=== PATIENT | female | born 1965 ===

== ENCOUNTER 2021-02-03 12:58 | Outpatient (REF) | payer OTHER, SELFPAY | END 2021-02-03 12:59 | disposition home or self-care (01) | LOC: HO.LAB 12:58 | PROVIDERS: Visit Provider Internal Medicine | DX: Z20.822 Contact with and (suspected) exposure to COVID-19 (principal) | CPT/HCPCS: C9803; U0003; U0005 ==

== ENCOUNTER 2021-08-11 14:01 | Outpatient (REF) | payer OTHER, SELFPAY ==
--- NOTE | ~2021-08-11 | MM_ITS ---
EXAMINATION: MM SCREENING DIGITAL BREAST TOMOSYNTHESIS, BILATERAL CLINICAL INFORMATION: Screening. Asymptomatic. The lifetime risk of breast cancer based on the Tyrer-Cuzick Model is 11.8%. COMPARISON: Mammography: September 04, 2018 and studies dating back to September 29, 2013 TECHNIQUE: Digital breast tomosynthesis is performed in both the craniocaudal and mediolateral oblique views along with computer-aided detection (CAD). Synthesized 2D images are generated from the tomosynthesis. FINDINGS: The breasts are heterogeneously dense, which may obscure small masses (ACR BI-RADS breast composition Category c). There are no significant masses, abnormal calcifications, or other abnormalities. There are stable circumscribed densities seen bilaterally. MM/MM tomosynthesis screening BI IMPRESSION: There are no significant changes from prior study. ASSESSMENT: BI-RADS 1: Negative RECOMMENDATION: Routine annual mammography screening. This patient's information was entered into a reminder system with a target due date for their next mammogram.
== END 2021-08-11 14:02 | disposition home or self-care (01) ==
LOC: HO.MAMMO 14:01
PROVIDERS: Visit Provider Internal Medicine
DX: Z12.31 Encounter for screening mammogram for malignant neoplasm of breast (principal)
CPT/HCPCS: 77063; 77067

== ENCOUNTER 2021-11-06 12:29 | Emergency (ER) | payer OTHER, SELFPAY ==
--- NOTE | ~2021-11-06 | XR_ITS ---
EXAMINATION: XR CHEST CLINICAL INFORMATION: Shortness of breath and cough COMPARISON: 04/10/2012 TECHNIQUE: 2 views of the chest were obtained. FINDINGS: No significant abnormality is noted involving the heart, lungs, mediastinum, bony thorax or soft tissues. Mild degenerative changes are present in the spine with surgical clips in the gallbladder fossa. XR/XR chest 2V IMPRESSION: No acute intrathoracic disease.
[2021-11-06 13:22] VITALS: BP 121/82; PULSE 97; RESP 20; TEMP 36.8; O2SAT 100; BMI 29.2
--- NOTE | 2021-11-06 17:14 | ED.SOB ---
HPI - SOB/Dyspnea General Chief Complaint: Upper Respiratory Symptoms Stated Complaint: coughing/SOB Time Seen by Provider: 11/06/21 17:13 Source: patient Mode of arrival: ambulatory Limitations: no limitations History of Present Illness HPI Narrative: Patient is a 55-year-old female with a past medical history of asthma, hypertension, diabetes, hyperlipidemia, depression, schizophrenia. She is presenting to the emergency department for evaluation of breath and cough. She states that she is having shortness of breath and coughing for 2 weeks. She was evaluated 5 days ago at [facility] and was prescribed Tessalon which she reports has made no improvement in her symptoms. She has been using her albuterol inhaler without significant improvement, does not have any nebulizer treatment/ machine at home. Productive cough with green phlegm. In addition, she is experiencing nasal congestion. She denies fevers, chills, sore throat, chest pain, palpitations, nausea, vomiting, diarrhea, abdominal pain, weakness. Reports she has not recently been on any prednisone. She has been vaccinated for COVID-19 has received 2 doses of CELLFOR last dose July 2021. She denies any sick contacts or possible exposure to COVID-19. Related Data Previous Rx's Medication Instructions Recorded oxybutynin chloride 10 mg 10 mg PO DAILY 90 Days #90 tab 07/01/20 tablet,extended release 24 hr dextromethorphan-guaifenesin 10 10 ml PO Q4-6H PRN #500 ml 11/06/21 mg-100 mg/5 mL oral liquid prednisone 20 mg tablet 40 mg PO DAILY 5 Days #10 tab 11/06/21 Allergies Allergy/AdvReac Type Severity Reaction Status Date / Time latex [LATEX] Allergy Intermediate ITCHING, Unverified 05/20/20 18:21 REDNESS perfume [PERFUME] Allergy Unknown TONGUE Unverified 05/20/20 18:21 OROZCO DETERGENT Allergy Unknown RASH Uncoded 05/20/20 18:21 Review of Systems Review of Systems: Constitutional : No Fever, No Chills ENT/Mouth : No Hoarseness, No sore throat, No Rhinorrhea Eyes: No Redness, No Discharge, No Vision Changes Cardiovascular : No Chest Pain, positive SOB, positive Dyspnea on Exertion, No Edema Respiratory : positive Cough, No Sputum, positive Wheezing, Gastrointestinal : No Nausea, No Vomiting, No Diarrhea, No abdominal Pain Genitourinary : No Dysuria, No Hematuria Musculoskeletal : No joint pain, No Myalgias Skin : No rash Neuro : No Weakness, No Numbness, No Headache Psych : No anxiety, depression Heme/Lymph: No Bruising, No Bleeding Endocrine : No Polyuria, No Polydipsia All other systems reviewed and are negative [facility] Social History Social History Advance Directives: No Advance Directives Information Provided: No Patient : No Physical Exam Vital Signs: Vital Signs: Last Vital Signs Temp 98.2 F 11/06/21 13:22 Pulse 119 H 11/06/21 18:59 Resp 18 11/06/21 18:59 BP 114/71 11/06/21 18:59 Pulse Ox 98 11/06/21 18:59 BMI result Body Mass Index 29.2 Vital signs have been reviewed as normal and appeared to be correct. Blood pressure normal.? Heart rate normal.? Respiration rate normal. Temperature normal.? Oxygen saturation normal. Appearance: Alert.?Oriented to person, place and time. No acute distress.?Normal affect. Eyes: Pupils equal, round and reactive to light.? ENT: Pharynx normal.?? Neck: Normal inspection.? Neck supple.?? CVS: Heart sounds normal. Normal heart rate and rhythm.? Pulses normal.?? Respiratory: No respiratory distress.? Lung sounds with inspiratory and expiratory wheezing and rhonchi bilaterally Abdomen: Soft and non-tender. Normoactive bowel sounds. No pulsatile mass.?? Skin: Skin warm and dry.? Normal skin color.? Normal skin turgor.?? Extremities: No lower extremity edema.? No calf ttp? Neuro: Moves all extremities spontaneously. Sensation intact bilaterally. CN II-XII intact. No focal neuro deficits. Ambulates with normal steady gait. Course Course Course Narrative: Will obtain CBC to evaluate for leukocytosis/ anemia, BMP evaluate for abnormal electrolytes /abnormal renal function. Chest x-ray to evaluate for consolidation/ infiltrate/ mass/ pulmonary congestion. COVID-19, RSV, influenza testing to be obtained. EKG and troponin to evaluate for ischemia/ACS. Will order prednisone 60 mg by mouth, and albuterol 10 mg. Disposition pending results. Reevaluation(s) Reevaluation #1: CBC reveals a mild leukocytosis of 12.9, with elevated lymphocyte count low neutrophils, likely to be a viral upper respiratory infection. EKG reveals normal sinus rhythm, troponin <3.5, unlikely to be ACS. COVID-19, RSV, influenza testing negative. Chest X-ray is normal. Lung sounds remain with mild rhonchi bilaterally, faint expiratory wheezing in the lower lobes but significantly improved after prednisone and nebulizer inhaler. Tachycardia after treatment with heart rate 119 likely secondary to albuterol, and corticosteroids. Symptoms are consistent with a viral bronchitis, asthma exacerbation. I discussed findings with patient. Patient to be discharged home with prescription for short course of prednisone and guaifenesin, discussed reasons to return to the emergency department. Advised to contact her primary care provider to schedule follow-up appointment in 1-2 days. Patient is agreeable with plan of care. Time: 18:43 MDM - SOB/Dyspnea Medical Records Attestation: I reviewed the patient's medical records. Lab Data Attestation: I reviewed the patient's lab results. Result diagrams: 11/06/21 15:12 11/06/21 15:12 Labs: Lab Results 11/06/21 11/06/21 11/06/21 Range/Units 15:12 15:12 15:12 WBC 12.9 H (4.8-10.8) X10*3/uL RBC 5.00 (4.20-5.50) X10*6/uL Hgb 13.5 (12.0-16.0) g/dl Hct 43.0 (37.0-47.0) % MCV 86.0 (80.0-98.0) fL MCH 27.0 (27.0-33.0) pg MCHC 31.4 (31.0-35.0) g/dl RDW 13.9 (11.0-16.0) % Plt Count 217 (160-400) X10*3/uL MPV 11.4 (9.4-12.3) fL Immature Gran % (Auto) 0.2 (0.0-0.4) % Neut % (Auto) 35.2 L (45-73) % Lymph % (Auto) 58.5 H (20-40) % [place] % (Auto) 4.5 (2-11) % Eos % (Auto) 0.9 (0-4) % Baso % (Auto) 0.7 (0-2) % Lymph # (Auto) 7.5 H (1.2-4.9) X10*3/uL [place] # (Auto) 0.6 (0.1-1.2) X10*3/uL Eos # (Auto) 0.1 (0.0-0.4) X10*3/uL Baso # (Auto) 0.1 (0.0-0.2) X10*3/uL Abs Immat Gran (auto) 0.03 (0.00-0.03) X10*3/uL Absolute Neuts (auto) 4.5 (2.0-8.3) x10*3/uL Absolute Nucleated RBC 0.000 (0.0-0.012) X10*3/uL Nucleated RBC % (auto) 0.0 (0.0-0.2) /100WBC Sodium 140 (135-145) mmol/L Potassium 4.2 (3.3-5.1) mmol/L Chloride 106 (96-108) mmol/L Carbon Dioxide 27 (22-29) mmol/L Anion Gap 11 L (12-20) BUN 5 L (9-16) mg/dL Creatinine 0.79 (0.5-1.4) mg/dL Estim Creat Clear Calc 69.2 Estimated GFR > 60 Random Glucose 94 (60-115) mg/dL Calcium 10.1 (8.4-10.2) mg/dL Troponin I High Sens (<3.5-17.0) ng/L Influenza Type A (PCR) NEGATIVE (Negative) Influenza Type B (PCR) NEGATIVE (Negative) RSV RNA Qual (PCR) NEGATIVE (Negative) SARS-CoV-2 RNA (RT-PCR) NEGATIVE (Negative) 11/06/21 Range/Units 15:12 WBC (4.8-10.8) X10*3/uL RBC (4.20-5.50) X10*6/uL Hgb (12.0-16.0) g/dl Hct (37.0-47.0) % MCV (80.0-98.0) fL MCH (27.0-33.0) pg MCHC (31.0-35.0) g/dl RDW (11.0-16.0) % Plt Count (160-400) X10*3/uL MPV (9.4-12.3) fL Immature Gran % (Auto) (0.0-0.4) % Neut % (Auto) (45-73) % Lymph % (Auto) (20-40) % [place] % (Auto) (2-11) % Eos % (Auto) (0-4) % Baso % (Auto) (0-2) % Lymph # (Auto) (1.2-4.9) X10*3/uL [place] # (Auto) (0.1-1.2) X10*3/uL Eos # (Auto) (0.0-0.4) X10*3/uL Baso # (Auto) (0.0-0.2) X10*3/uL Abs Immat Gran (auto) (0.00-0.03) X10*3/uL Absolute Neuts (auto) (2.0-8.3) x10*3/uL Absolute Nucleated RBC (0.0-0.012) X10*3/uL Nucleated RBC % (auto) (0.0-0.2) /100WBC Sodium (135-145) mmol/L Potassium (3.3-5.1) mmol/L Chloride (96-108) mmol/L Carbon Dioxide (22-29) mmol/L Anion Gap (12-20) BUN (9-16) mg/dL Creatinine (0.5-1.4) mg/dL Estim Creat Clear Calc Estimated GFR Random Glucose (60-115) mg/dL Calcium (8.4-10.2) mg/dL Troponin I High Sens < 3.5 (<3.5-17.0) ng/L Influenza Type A (PCR) (Negative) Influenza Type B (PCR) (Negative) RSV RNA Qual (PCR) (Negative) SARS-CoV-2 RNA (RT-PCR) (Negative) Imaging Data Chest x-ray: Radiologist's impression: FINDINGS: No significant abnormality is noted involving the heart, lungs, mediastinum, bony thorax or soft tissues. Mild degenerative changes are present in the spine with surgical clips in the gallbladder fossa. XR/XR chest 2V IMPRESSION: No acute intrathoracic disease. ECG Data Attestation: I personally reviewed and interpreted this ECG as follows: ECG interpretation date: 11/06/21 ECG interpretation time: 18:05 Prior ECG tracings: available for review Interpretation: Rate: 86 Rhythm:? Normal sinus rhythm [place]:? Normal Normal P waves.? Normal ALEXEI.?? Normal QRS complex.?? ST T wave :??No ST elevation, no ST depression, no T-wave inversion qTC: 447 prior studies:? December 2018 The study has been interpreted contemporaneously by me. Discharge Plan Discharge Clinical Impression: Upper respiratory infection Patient Disposition: Home, Self-Care Instructions: Upper Respiratory Infection (ED) Additional Instructions: Your symptoms are consistent with an upper respiratory infection and likely asthma exacerbation. Please take cough syrup as prescribed, and prednisone daily for 5 days. Please take the prednisone food as it may cause upset stomach. And a thumb a result an increase in your blood sugar levels, we should monitor this closely. Please contact your primary care provider and schedule follow-up appointment in 1-2 days. Return to the emergency department with any new or worsening symptoms or concerns Prescriptions: New prednisone 20 mg tablet 40 mg PO DAILY 5 Days Qty: 10 0RF dextromethorphan-guaifenesin 10-100 mg/5 mL liquid 10 ml PO Q4-6H PRN (Reason: cough) Qty: 500 0RF No Action oxybutynin chloride 10 mg tablet extended release 24hr 10 mg PO DAILY 90 Days Qty: 90 2RF Interventions: ED Discharge Assessment Last Done: 11/06/21 19:39 Discharge Date/Time: 11/06/21 19:44
[2021-11-06 17:18] LABS: MANUAL DIFF FLAG NO
[2021-11-06 17:19] LABS: Basophils Absolute Auto 0.1 X10*3/uL (0.0-0.2); Basophils Percent Auto 0.7 % (0-2); Eosinophils Absolute Auto 0.1 X10*3/uL (0.0-0.4); Eosinophils Percent Auto 0.9 % (0-4); Hemoglobin 13.5 g/dl (12.0-16.0); Imm Gran Abs Auto 0.03 X10*3/uL (0.00-0.03); Imm Gran Pct Auto 0.2 % (0.0-0.4); Mean Corpuscular HGB Conc 31.4 g/dl (31.0-35.0); Mean Platelet Volume 11.4 fL (9.4-12.3); Monocytes Absolute Auto 0.6 X10*3/uL (0.1-1.2); Monocytes Percent Auto 4.5 % (2-11); Neutrophils Absolute Auto 4.5 x10*3/uL (2.0-8.3); Neutrophils Percent Auto 35.2 % (45-73); Platelet Count 217 X10*3/uL (160-400); Red Cell Distribution Width 13.9 % (11.0-16.0); SCAN SMEAR FLAG 1; White Blood Count 12.9 X10*3/uL (4.8-10.8)
[2021-11-06 17:23] LABS: Lymphocytes Absolute Auto 7.5 X10*3/uL (1.2-4.9)
[2021-11-06 17:37] LABS: Anion Gap 11 (12-20); Blood Urea Nitrogen 5 mg/dL (9-16); Calcium 10.1 mg/dL (8.4-10.2); Carbon Dioxide 27 mmol/L (22-29); Chloride 106 mmol/L (96-108); Creatinine Clr Calc Pharmacy 69.2; Estimated Glomerular Filt Rate > 60; Glucose Random 94 mg/dL (60-115); Potassium 4.2 mmol/L (3.3-5.1); Sodium 140 mmol/L (135-145)
[2021-11-06 17:38] LABS: Lymphocytes Percent Auto 58.5 % (20-40)
[2021-11-06] MEDS: predniSONE 20 MG TABLET 60 MG PO (17:39)
--- NOTE | 2021-11-06 17:41 | ECG_ITS ---
Test Reason : SHORTNESS OF BREATH Blood Pressure : / mmHG Vent. Rate : 086 BPM Atrial Rate : 086 BPM P-R Int : 154 ms QRS Dur : 084 ms QT Int : 374 ms P-R-T Axes : 049 022 046 degrees QTc Int : 447 ms Normal sinus rhythm Normal ECG When compared with ECG of 31-DEC-2018 12:07, No significant change was found Referred By: Jannet Will Electronically Signed By:SHANTANU TRAN MD
[2021-11-06 18:06] LABS: Influenza A PCR NEGATIVE (Negative); Influenza B PCR NEGATIVE (Negative); Resp Syncy Virus RNA Qual PCR NEGATIVE (Negative); SARS COV2 PCR INHOUSE NEGATIVE (Negative)
[2021-11-06 18:11] VITALS: PULSE 95; RESP 20; O2SAT 99
[2021-11-06] MEDS: Albuterol Sulfate (0.083%) 2.5 MG/3 ML VIAL.NEB 10 MG INHALE (18:11)
[2021-11-06 18:25] LABS: Troponin-I High Sensitivity < 3.5 ng/L (<3.5-17.0)
[2021-11-06 18:59] VITALS: BP 114/71; PULSE 119; RESP 18; O2SAT 98
== END 2021-11-06 19:44 | disposition home or self-care (01) ==
PROVIDERS: Nurse Practitioner Family; Emergency Provider Internal Medicine; PCP Internal Medicine
DX: J06.9 Acute upper respiratory infection, unspecified (principal); R06.02 Shortness of breath; R05.9 Cough, unspecified; I10 Essential (primary) hypertension; F33.1 Major depressive disorder, recurrent, moderate; Z20.822 Contact with and (suspected) exposure to COVID-19; Z79.899 Other long term (current) drug therapy
CPT/HCPCS: 0241U; 36415; 71046; 80048; 84484; 85025; 93005; 94640; 94644; 99284

== ENCOUNTER → 2021-11-30 13:02 | Outpatient (REF) | payer OTHER, SELFPAY ==
--- NOTE | 2021-11-30 13:13 | CA_ITS ---
Transthoracic Echocardiogram Patient (Last, First, Middle): Altagracia Jimenez, Gender: Female Date of : 1965 Age: 56 Procedure Date: 11/30/2021 Procedure Type: Transthoracic Echocardiogram Location: OP Height: 152.4 cm Weight: 68.04 kg BSA: 1.65 m2 Heart Rate: bpm BP: 118 / 70 mmHg Body Presser: YR/TO Referring MD: Elizabeth Baird MD Symptoms: I10 HTN I35.8 NR AV DIS ORDER Study Quality: Fair ECG Rhythm: Sinus Conclusions: - The left ventricular systolic function is normal. The calculated ejection fraction is 65% by biplane method. - No obvious valvular pathology seen on this study. Findings Left Ventricle Normal left ventricular cavity size. There is normal left ventricular wall thickness. The left ventricular systolic function is normal. The calculated ejection fraction is 65% by biplane method. There is no evidence of regional wall motion abnormalities. Diastolic function is normal for age. Right Ventricle Normal right ventricular cavity size and systolic function. Atria Both atria are normal in size. Aortic Valve There is a normal trileaflet aortic valve. There is no aortic valve stenosis. There is no aortic valve regurgitation. Mitral Valve The mitral valve appears normal. There is no mitral valve regurgitation. There is no mitral valve stenosis. Pulmonic Valve The pulmonic valve was not well visualized. Tricuspid Valve There is trace tricuspid valve regurgitation. The pulmonary artery systolic pressure is normal. Great Vessels The aortic annulus, sinuses of valsalva, and asc aorta are normal in size. Venous The inferior vena cava is normal in size and collapses greater than 50% with inspiration. Pericardium/Pleural There is no evidence of pericardial effusion. Prior Study Comparison No prior study available for comparison. Recommendations, Care & Conclusions No obvious valvular pathology seen on this study. Measurements 2D Linear Measurements IVSd: 0.66 0.6-0.9/0.6-1.0 cm LVIDd: 2.91 3.9-5.3/4.2-5.9 cm LVIDd Index: 1.76 2.4-3.2/2.2-3.1 cm/m2 LVIDs: 1.55 2.0-3.6 cm LVPWd: 0.70 0.7-1.1 cm LA Diam: 3.00 2.7-3.8/3.0-4.0 cm LAIDs Index: 1.82 1.5-2.3 cm/m2 LV Mass: 55.34 67-162/88-224 g LV Mass Index: 33.54 43-95/49-115 g/m2 LVOT Diam: 2.10 3.0+(-)1.3 cm 2D Systolic Function EF 4C: 65.10 >55% EF 2C: 66.00 >55% EF BiP: 64.60 >55% Mitral Valve MV Pk E: 0.66 MV PK A: 0.77 MV Decel Time: 166.00 E/A: 0.90 E'Lateral: 9.36 E'Medial: 6.31 E/E' Med: 10.50 E/E' Lat: 7.10 PHT: 49.00 MVA PHT: 4.49 Decel Duval: 3.97 Aortic Valve AoV Pk Serjio: 2.08 AoV Mn Serjio: 1.36 AoV VTI: 0.28 AoV Pk Grad: 17.00 Aov Mn Grad: 9.00 KM Cont.VTI: 3.15 LVOT LVOT Pk Serjio: 1.19 LVOT Mn Serjio: 0.87 LVOT VTI: 0.26 LVOT Pk Grad: 6.00 LVOT Mn Grad: 3.00 LVOT Diam: 2.10 LVOT Area: 3.46 Diastolic Function MV Pk E: 0.66 MV Pk A: 0.77 E/A: 0.90 E'Medial: 6.31 E/E' Med: 10.50 E' Laterial: 9.36 E/E' Lat: 7.10 Right Ventricle TAPSE (mm): 16.10 TVS' Serjio: 13.50 Tricuspid Valve TR Pk Serjio: 2.52 TR Pk Grad: 25.00 RA Press: 8.00 RVSP: 33.00 Great Vessels Aorta Sinus of Valsalva: 3.22 2.0-3.[address] [place]: 2.66 1.7-3.4 cm Ao Asc: 3.60 2.1-3.4 cm Ao Arch: 2.90 Updated in Other Vendor System with Status of Final Jayme Hung MD electronically signed on 12/01/2021 3:12:59 PM with status of Final
== END ==
LOC: HO.CARD 13:02
PROVIDERS: Visit Provider Internal Medicine
DX: I10 Essential (primary) hypertension (principal); I35.8 Other nonrheumatic aortic valve disorders
CPT/HCPCS: 93306

== ENCOUNTER → 2021-12-05 19:30 | Outpatient (REF) | payer OTHER, SELFPAY | LOC: HO.SL 19:30 | PROVIDERS: Visit Provider Internal Medicine | DX: G47.33 Obstructive sleep apnea (adult) (pediatric) (principal) | CPT/HCPCS: 95810 ==

== ENCOUNTER → 2022-02-28 20:00 | Outpatient (REF) | payer OTHER, SELFPAY | LOC: HO.SL 20:00 | PROVIDERS: Visit Provider Internal Medicine | DX: G47.33 Obstructive sleep apnea (adult) (pediatric) (principal) | CPT/HCPCS: 95811 ==

== ENCOUNTER 2022-09-28 11:37 | Emergency (ER) | payer MEDICARE, MEDICAID, SELFPAY ==
[2022-09-28 11:51] VITALS: BP 161/77; PULSE 88; O2SAT 98
[2022-09-28 11:52] VITALS: BMI 32.8
[2022-09-28 11:54] VITALS: BP 139/87; PULSE 85; RESP 21; TEMP 36.8; O2SAT 98
[2022-09-28 12:16] VITALS: BP 139/78; PULSE 96; RESP 14; O2SAT 100
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
[2022-09-28] MEDS: Ibuprofen 600 MG TABLET PO (13:06)
[2022-09-28] MEDS: Acetaminophen 325 MG TABLET 975 MG PO (13:06)
[2022-09-28] MEDS: Lidocaine 4 % Patch ADH..PATCH 1 PATCH TRANSDERMA (13:06)
[2022-09-28] MEDS: oxyCODONE HCl Immed Release 5 MG TABLET PO (13:07)
== END 2022-09-28 13:46 | disposition home or self-care (01) ==
PROVIDERS: Emergency Provider Student in an Organized Health Care Education/Training Program; PCP Nurse Practitioner Primary Care
DX: S13.4XXA Sprain of ligaments of cervical spine, initial encounter (principal); M54.50 Low back pain, unspecified; V43.62XA Car passenger injured in collision with other type car in traffic accident, initial encounter; Y93.9 Activity, unspecified; Y92.410 Unspecified street and highway as the place of occurrence of the external cause; Y99.9 Unspecified external cause status
CPT/HCPCS: 99283

== ENCOUNTER 2023-01-01 21:04 | Emergency (ER) | payer MEDICARE, MEDICAID, SELFPAY ==
[2023-01-01 21:14] VITALS: BP 134/80; PULSE 79; RESP 16; TEMP 37.1; O2SAT 100; BMI 29.3
[2023-01-01 22:01] LABS: COVID-19 Test Negative (Negative); IDNOW Serial# BCCEAD1C
[2023-01-01 22:03] LABS: IDNOW Serial# 08D9AD1C; Influenza A Negative (Negative)
[2023-01-01 22:04] LABS: Influenza B2 Negative (Negative)
--- OUTSIDE RECORDS SUMMARY | 2023-01-02 03:06 | XMS_ITS ---
Author Name Rg Roa Address [address] [place] [address] Organization [facility] Address [address] [place] [address] Care Team Providers Care Human Resources Leader Name Role Phone Rg Roa Unavailable [phone] PROBLEMS Type Condition ICD9-CM Code [id number] Code Onset Dates Condition Status SNOMED Code Problem Encounter for screening for malignant neoplasm of colon Z12.11 Active 625045761 Problem Gastroesophageal reflux disease, esophagitis presence not specified K21.9 Active 436269202 ALLERGIES No Known Allergies ENCOUNTERS Encounter Location Date Diagnosis [facility] [address] [place] [phone] Jul, [facility] Outpatient [address] [place] [phone] Nov, GERD (gastroesophageal reflux disease) K21.9 ; Hiatal hernia K44.9 ; Colon polyp K63.5 ; Diverticular disease of colon K57.30 and Other hemorrhoids K64.8 [facility] [address] [place] [phone] Sep, [facility] [address] [facility] [address] [place] [phone] Aug, Gastroesophageal reflux disease, esophagitis presence not specified K21.9 and Encounter for screening for malignant neoplasm of colon Z12.11 [facility] [address] [place] [phone] Jun, [facility] [address] [place] [address] January, [facility] [address] [place] [address] January, [facility] [address] [place] [address] Oct, [facility] [address] [place] [address] Sep, [facility] [address] [place] [address] Jun, [facility] [address] [place] [phone] Dec, [facility] [address] [place] [phone] Nov, [facility] [address] [place] [phone] Jul, [facility] [address] [place] [phone] Sep, [facility] [address] [place] [address] Feb, [facility] [address] [place] [phone] Aug, [facility] [address] [place] [phone] Mar, [facility] [address] [place] [address] Dec, [facility] [address] [place] [address] Jul, [facility] [address] [place] [address] Jun, [facility] [address] [place] [address] Feb, [facility] [address] [place] [address] Feb, [facility] [address] [place] [address] January, GERD (gastroesophageal reflux disease) 530.81 ; Irritable bowel syndrome 564.1 and Diarrhea 787.91 IMMUNIZATIONS No Known Immunizations SOCIAL HISTORY Qualifiers Date Current Smoker REASON FOR REFERRAL FUNCTIONAL STATUS PLAN OF CARE Activity Details VITAL SIGNS Weight 147 lbs 2019-08-20 Weight 164 lbs 2014-01-09 Height 60 in 2019-08-20 Height 60 in 2014-01-09 BMI 28.71 kg/m2 2019-08-20 BMI 32.03 kg/m2 2014-01-09 Heart Rate 84 /min 2019-08-20 Heart Rate 90 /min 2014-01-09 Blood pressure systolic 96 mm Hg Blood pressure diastolic 70 mm Hg 2019-08 MEDICATIONS Medication Instructions Dosage Frequency Start Date End Date Duration Status Brandywine Carbonate ER 450 MG Orally Once a day 1 tablet at bedtime 24h 30 day(s) Active Aspir-Low 81 MG Orally Once a day 1 tablet 24h 30 day(s) Active Dulcolax (colon prep) 5 MG Orally two tablets twice a day for one day take at 3:00 p.m and 7:00p.m. Aug, 1 day Active Topiramate 100 MG Orally Once a day 1 tablet 24h 30 day(s) Active Polyethylene Glycol 3350 - MIX WITH GATORADE OR CRYSTAL LIGHT AND DRINK AT 5PM DAY BEFORE PROCEDURE 1 Active Omeprazole 20 MG TAKE 1 CAPSULE BY MOUTH TWICE DAILY EVERY MORNING AND EVERY EVENING 30 Active Lisinopril 20 MG Orally Once a day 1 tablet 24h Active Dulcolax (colon prep) 5 MG Orally two tablets twice a day for one day take at 3:00 p.m and 7:00p.m. Sep, 1 day Active Atorvastatin Calcium 40 MG Orally Once a day 1 tablet 24h 30 day(s) Active Montelukast Sodium 10 MG Orally Once a day 1 tablet 24h 30 day(s) Active MiraLax (colon prep) 8.3 ounce ((238) grams orally begin at 5:00 p.m. the day before the procedure mixed with Gatorade or Crystal Light Sep, 1 day Active risperiDONE 0.5 MG Orally Once a day 1 tablet 24h 30 day(s) Active MiraLax (colon prep) 8.3 ounce ((238) grams orally begin at 5:00 p.m. the day before the procedure mixed with gatorade or crystal light Aug, 1 day Active Oxybutynin Chloride ER 10 MG Orally Once a day 1 tablet 24h 30 day(s) Active Venlafaxine HCl ER 150 MG Orally Once a day 1 tablet with food 24h 30 day(s) Active metFORMIN HCl 500 MG Orally Once a day 1 tablet with a meal 24h 30 day(s) Active Fish Oil 1000 MG Orally Once a day 1 capsule 24h 30 day(s) Active PROCEDURES Procedure Date Ordered Result Body Site PT TOBACCO SCREEN RCVD TLK Aug 20, 2019 BP SCR PRFRM RCMDD DEFIND SCR INTVL Aug 20, 2019 RCMND FLW-UP 10 YRS DOCD November 05, 2019 INTRVL 3+YRS PTS CLNSCP DOCD November 05, 2019 DOC MEDS VERIFIED W/PT OR RE Aug 20, 2019 COLONOSCOPY AND BIOPSY November 05, 2019 COLORECTAL CA SCREEN DOC REV Aug 20, 2019 UPPER GI ENDOSCOPY, BIOPSY November 05, 2019 RESULTS Name Result Date Reference Range GLUCOSE,WHOLE BLOOD 2019-11-05 GLUCOSE,WHOLE BLOOD 82 60-115 GLUCOSE,WHOLE BLOOD 2019-11-05 GLUCOSE,WHOLE BLOOD 106 60-115 GI BIOPSY 2019-11-05 G.I. BIOPSY REASON FOR VISIT Patient presents today for melena, Patient presents today for melena, pharyngoesophageal dysphagia,screening, PATIENT PRESENTS TODAY FOR GERD, Omeprazole DR 20 mg, Pt no show, PATIENT PRESENTS TODAYFOR office visit, omeprazole r/f request, Patient presents today for office visit, r/s o/v, R/F OMEPRAZOLE, needs refill on omeprazole, refill/Omeprazole, Pt no show, patient presents today for reflux and screening, Needs refill, needs new refill, RX refill/omeprazole/[facility], refill request, needs refill, refill, Pt no show, follow up, Patient having trouble with bowel movements , having much pain Insurance Providers Health Insurance Type Health Plan Insurance Address Health Plan Insurance Phone Health Plan Insurance Name Health Plan Coverage Dates Member ID Patient Relationship to Subscriber Patient Address Patient Phone Patient Name Patient Date of Subscriber ID Subscriber Name Subscriber Date of Group No [employer] OF [employer] [address] [facility] [address] [employer] self ARIANNA ANNETTE [id number] [employer] [address] [facility] [address] [employer] self ARIANNA ANNETTE [id number] [facility] [address] [facility] [address] [facility] self ARIANNA ANNETTE [id number] [place] [address] [facility] [address] [place] ARIANNA BRYANT [id number]
[2023-01-02 03:35] LABS: Basophils Absolute Auto 0.1 X10*3/uL (0.0-0.2); Basophils Percent Auto 0.5 % (0-2); Eosinophils Percent Auto 0.1 % (0-4); Hematocrit 40.4 % (37.0-47.0); Hemoglobin 12.9 g/dl (12.0-16.0); Imm Gran Abs Auto 0.04 X10*3/uL (0.00-0.03); Imm Gran Pct Auto 0.3 % (0.0-0.4); Lymphocytes Absolute Auto 6.3 X10*3/uL (1.2-4.9); Lymphocytes Percent Auto 44.1 % (20-40); MANUAL DIFF FLAG SCAN; Mean Corpuscular HGB Conc 31.9 g/dl (31.0-35.0); Mean Corpuscular Hemoglobin 26.4 pg (27.0-33.0); Mean Corpuscular Volume 82.8 fL (80.0-98.0); Mean Platelet Volume 11.1 fL (9.4-12.3); Monocytes Absolute Auto 0.8 X10*3/uL (0.1-1.2); Monocytes Percent Auto 5.6 % (2-11); Neutrophils Percent Auto 49.4 % (45-73); Platelet Count 160 X10*3/uL (160-400); Red Blood Count 4.88 X10*6/uL (4.20-5.50); Red Cell Distribution Width 13.5 % (11.0-16.0); SCAN SMEAR FLAG 1; White Blood Count 14.2 X10*3/uL (4.8-10.8)
[2023-01-02 03:55] LABS: Troponin-I High Sensitivity < 2.7 ng/L (<3.5-17.0)
[2023-01-02 03:58] LABS: Alanine Aminotransferase 40 U/L (0-31); Albumin Level 4.2 g/dL (3.5-5.0); Alkaline Phosphatase 94 U/L (39-117); Anion Gap 14 (12-20); Aspartate Amino Transferase 30 U/L (5-31); Bilirubin Total 0.7 mg/dL (0.0-1.0); Blood Urea Nitrogen 9 mg/dL (9-16); Calcium 9.8 mg/dL (8.4-10.2); Carbon Dioxide 31 mmol/L (22-29); Chloride 100 mmol/L (96-108); Creatinine Clr Calc Pharmacy 75.1; Estimated Glomerular Filt Rate > 60; Glucose Random 156 mg/dL (60-115); Lipase 35 U/L (8-78); Potassium 3.3 mmol/L (3.3-5.1); Sodium 142 mmol/L (135-145); Total Protein 7.5 g/dL (6.5-8.0)
--- NOTE | 2023-01-02 04:12 | ED_ITS ---
HPI - Nausea/Vomiting/Diarrhea General Chief complaint: Nausea/Vomiting/Diarrhea Stated complaint: vomiting Time Seen by Provider: 01/02/23 04:05 Source: patient Mode of arrival: ambulatory Limitations: no limitations History of Present Illness HPI Narrative: Patient status post cholecystectomy otherwise healthy complaining of nausea vomiting since afternoon today vomited about 10 times now has only nausea with d iffuse abdominal cramps no other family member sick no diarrhea no fever or chills no urinary symptoms Related Data Home Medications Medication Instructions Recorded Confirmed albuterol sulfate 90 mcg/actuation 2 puff inhalation Q4-6H PRN 05/30/22 05/30/22 aerosol inhaler Shortness Of Breath Or Wheezing atorvastatin 40 mg tablet 1 tab PO DAILY 05/30/22 05/30/22 beclomethasone dipropionate 80 1 inh inhalation BID 05/30/22 05/30/22 mcg/actuation HFA breath activated aerosol (Qvar RediHaler) blood [facility] ([facility] 05/30/22 05/30/22 Lite Strips) blood-glucose meter ([facility] 05/30/22 05/30/22 Lite Meter kit) cetirizine 10 mg tablet 1 tab PO QAM allergies 05/30/22 05/30/22 cholecalciferol (vitamin D3) 25 1 cap PO DAILY 05/30/22 05/30/22 mcg (1,000 unit) capsule (Vitamin D3) clonazepam 0.5 mg tablet 1 tab PO DAILY 05/30/22 05/30/22 diclofenac sodium 1 % topical gel 2 g topical QID 05/30/22 05/30/22 fluticasone propionate 220 2 puff inhalation BID 05/30/22 05/30/22 mcg/actuation HFA aerosol inhaler (Flovent HFA) fluticasone propionate 50 1 spray intranasal BID 05/30/22 05/30/22 mcg/actuation nasal spray,suspension lancets 28 gauge (FreeStyle 05/30/22 05/30/22 Lancets) lisinopril 10 mg tablet 10 mg PO DAILY 05/30/22 05/30/22 lithium carbonate 450 mg 450 mg PO DAILY 05/30/22 05/30/22 tablet,extended release metformin 500 mg tablet,extended 1 tab PO QPM 05/30/22 05/30/22 release 24 hr montelukast 10 mg tablet 1 tab PO QPM 05/30/22 05/30/22 omega-3 fatty acids 1,000 mg 1,000 mg PO BID 05/30/22 05/30/22 capsule pantoprazole 40 mg tablet,delayed 1 tab PO DAILY 05/30/22 05/30/22 release risperidone 2 mg tablet 2 mg PO DAILY 05/30/22 05/30/22 tizanidine 2 mg tablet 1 tab PO BEDTIME PRN Muscle Spasm 05/30/22 05/30/22 tolterodine 2 mg tablet 2 mg PO BID 05/30/22 05/30/22 topiramate 100 mg tablet 1 tab PO BEDTIME 05/30/22 05/30/22 varenicline 1 mg tablet (Chantix) 1 mg PO BID 05/30/22 05/30/22 varicella-zoster glycoE [id number] 0.5 ml IM DAILY 05/30/22 05/30/22 adj(PF) 50 mcg/0.5 mL IM susp, kit (Shingrix (PF)) venlafaxine 150 mg 1 cap PO QAM 05/30/22 05/30/22 capsule,extended release 24 hr Previous Rx's Medication Instructions Recorded oxybutynin chloride 10 mg 10 mg PO DAILY 90 days #90 tabs 07/01/20 tablet,extended release 24 hr dextromethorphan-guaifenesin 10 10 ml PO Q4-6H PRN cough #500 mL 11/06/21 mg-100 mg/5 mL oral liquid prednisone 20 mg tablet 40 mg PO DAILY 5 days #10 tabs 11/06/21 ondansetron 4 mg disintegrating 4 mg PO Q6-8H PRN nausea and 01/02/23 tablet vomiting #10 tabs Allergies Allergy/AdvReac Type Severity Reaction Status Date / Time latex [LATEX] Allergy Intermediate ITCHING, Verified 09/28/22 11:54 REDNESS perfume [PERFUME] Allergy Unknown TONGUE Verified 09/28/22 11:54 OROZCO DETERGENT Allergy Unknown RASH Uncoded 05/30/22 11:36 Review of Systems Review of Systems: Yes all other systems are reviewed and are negative PMFSH Past Medical History Medical History Asthma Bipolar disorder, unspecified Depression Diabetes mellitus type 2, uncomplicated Environmental allergies Fatty liver disease, nonalcoholic History of kidney stones Hyperlipidemia Hypertension Positive PPD Sleep apnea, obstructive Surgical History H/O removal of neck cyst History of cholecystectomy Family History Family History Other No family history of cancer Social History Social History Household Members: None Housing: Apartment Are you a primary child care giver to a significant other at home: No Do you presently have visiting nurse or other home services: Yes Patient Tobacco Use Status: Current everyday Tobacco user Tobacco use type: Cigarette Advance Directives: No Advance Directives Information Provided: Yes service: No Current occupational status: employed and disabled Current occupation: cafeteria Physical Exam Vital Signs: Vital Signs: Last Vital Signs Temp 97.8 F 01/02/23 06:11 Pulse 75 01/02/23 06:11 Resp 16 01/02/23 06:11 BP 116/72 01/02/23 06:11 Pulse Ox 97 01/02/23 06:11 O2 Del Method Room Air 01/02/23 06:11 BMI result Body Mass Index 29.3 Appearance: Alert. Oriented X3. No acute distress. Eyes: PERRLA, No Nystagmus ENT: Pharynx normal. Oral Mucosa moist Neck: Normal inspection. Neck supple. CVS: Normal heart rate and rhythm. Pulses normal. Respiratory: No respiratory distress. Equal air entry bilateral, no wheezing/rales/rhonchi Abdomen: Soft , diffuse tenderness no rebound tenderness or guarding, Bowel sounds are present, no mass palpable, no CVA tenderness Skin: Skin warm and dry. Normal skin color. Normal skin turgor. Extremities: No lower extremity edema. No calf tenderness Neuro: Oriented X 3. No motor deficit. Medications Administered Discontinued Medications Generic Name Dose Route Start Last Admin Trade Name Freq PRN Reason Stop Dose Admin Sodium Chloride 1,000 mls @ 999 mls/hr 01/02/23 04:09 01/02/23 04:24 Ns IV 01/02/23 05:09 999 mls/hr .Q1H1M ONE Administration Ketorolac Tromethamine 30 mg 01/02/23 04:09 01/02/23 04:24 Ketorolac Tromethamine 30 Mg/Ml Vial IVPUSH 01/02/23 04:10 30 mg ONCE ONE Administration Ondansetron HCl 4 mg 01/02/23 04:09 01/02/23 04:23 Ondansetron Hcl 4 Mg/2 Ml Vial IVPUSH 01/02/23 04:10 4 mg ONCE ONE Administration Medical Decision Making Medical Decision Making [facility] Narrative: Patient with stable vitals feel better after IV hydration taking the p.o. medication will discharge patient home Lab Data [facility] Lab Attestation statement: I reviewed the patient's lab results. 01/02/23 03:29 01/02/23 03:29 Labs: Lab Results 01/01/23 01/01/23 01/02/23 Range/Units 21:30 21:30 03:29 WBC 14.2 H (4.8-10.8) X10*3/uL RBC 4.88 (4.20-5.50) X10*6/uL Hgb 12.9 (12.0-16.0) g/dl Hct 40.4 (37.0-47.0) % MCV 82.8 (80.0-98.0) fL MCH 26.4 L (27.0-33.0) pg MCHC 31.9 (31.0-35.0) g/dl RDW 13.5 (11.0-16.0) % Plt Count 160 (160-400) X10*3/uL MPV 11.1 (9.4-12.3) fL Immature Gran % (Auto) 0.3 (0.0-0.4) % Neut % (Auto) 49.4 (45-73) % Lymph % (Auto) 44.1 H (20-40) % [place] % (Auto) 5.6 (2-11) % Eos % (Auto) 0.1 (0-4) % Baso % (Auto) 0.5 (0-2) % Lymph # (Auto) 6.3 H (1.2-4.9) X10*3/uL [place] # (Auto) 0.8 (0.1-1.2) X10*3/uL Eos # (Auto) 0.0 (0.0-0.4) X10*3/uL Baso # (Auto) 0.1 (0.0-0.2) X10*3/uL Abs Immat Gran (auto) 0.04 H (0.00-0.03) X10*3/uL Absolute Neuts (auto) 7.0 (2.0-8.3) x10*3/uL Absolute Nucleated RBC 0.000 (0.0-0.012) X10*3/uL Nucleated RBC % (auto) 0.0 (0.0-0.2) /100WBC Smear Tech's Comments VERIFIED Sodium (135-145) mmol/L Potassium (3.3-5.1) mmol/L Chloride (96-108) mmol/L Carbon Dioxide (22-29) mmol/L Anion Gap (12-20) BUN (9-16) mg/dL Creatinine (0.5-1.4) mg/dL Estim Creat Clear Calc Estimated GFR Random Glucose (60-115) mg/dL Calcium (8.4-10.2) mg/dL Total Bilirubin (0.0-1.0) mg/dL AST (5-31) U/L ALT (0-31) U/L Alkaline Phosphatase (39-117) U/L Troponin I High Sens (<3.5-17.0) ng/L Total Protein (6.5-8.0) g/dL Albumin (3.5-5.0) g/dL Lipase (8-78) U/L Urine Color Urine Appearance Urine pH (5.0-9.0) Ur Specific [place] (1.005-1.025) Urine Protein (Neg-Trace) mg/dL Urine Glucose (UA) (Negative) mg/dL Urine Ketones (Negative) mg/dL Urine Blood (Negative) Urine Nitrite (Negative) Ur Leukocyte Esterase (Negative) Urine RBC (0-2) /HPF Urine WBC (0-5) /HPF Ur Squamous Epith Cells (0-2) /HPF Urine Bacteria (None Seen) Hyaline Casts (0-2) /LPF COVID-19 ([facility]) Negative (Negative) COVID-19 Clin Com See Note Influenza Type A ([facility]) Negative (Negative) Influenza Type B ([facility]) Negative (Negative) Influenza A & B Note See Note 01/02/23 01/02/23 01/02/23 Range/Units 03:29 03:29 05:05 WBC (4.8-10.8) X10*3/uL RBC (4.20-5.50) X10*6/uL Hgb (12.0-16.0) g/dl Hct (37.0-47.0) % MCV (80.0-98.0) fL MCH (27.0-33.0) pg MCHC (31.0-35.0) g/dl RDW (11.0-16.0) % Plt Count (160-400) X10*3/uL MPV (9.4-12.3) fL Immature Gran % (Auto) (0.0-0.4) % Neut % (Auto) (45-73) % Lymph % (Auto) (20-40) % [place] % (Auto) (2-11) % Eos % (Auto) (0-4) % Baso % (Auto) (0-2) % Lymph # (Auto) (1.2-4.9) X10*3/uL [place] # (Auto) (0.1-1.2) X10*3/uL Eos # (Auto) (0.0-0.4) X10*3/uL Baso # (Auto) (0.0-0.2) X10*3/uL Abs Immat Gran (auto) (0.00-0.03) X10*3/uL Absolute Neuts (auto) (2.0-8.3) x10*3/uL Absolute Nucleated RBC (0.0-0.012) X10*3/uL Nucleated RBC % (auto) (0.0-0.2) /100WBC Smear Tech's Comments Sodium 142 (135-145) mmol/L Potassium 3.3 (3.3-5.1) mmol/L Chloride 100 (96-108) mmol/L Carbon Dioxide 31 H (22-29) mmol/L Anion Gap 14 (12-20) BUN 9 (9-16) mg/dL Creatinine 0.77 (0.5-1.4) mg/dL Estim Creat Clear Calc 75.1 Estimated GFR > 60 Random Glucose 156 H (60-115) mg/dL Calcium 9.8 (8.4-10.2) mg/dL Total Bilirubin 0.7 (0.0-1.0) mg/dL AST 30 (5-31) U/L ALT 40 H (0-31) U/L Alkaline Phosphatase 94 (39-117) U/L Troponin I High Sens < 2.7 (<3.5-17.0) ng/L Total Protein 7.5 (6.5-8.0) g/dL Albumin 4.2 (3.5-5.0) g/dL Lipase 35 (8-78) U/L Urine Color Yellow Urine Appearance Clear Urine pH 8.5 (5.0-9.0) Ur Specific [place] <= 1.005 (1.005-1.025) Urine Protein Negative (Neg-Trace) mg/dL Urine Glucose (UA) Negative (Negative) mg/dL Urine Ketones Negative (Negative) mg/dL Urine Blood Trace H (Negative) Urine Nitrite Negative (Negative) Ur Leukocyte Esterase Negative (Negative) Urine RBC 0-2 (0-2) /HPF Urine WBC 0-5 (0-5) /HPF Ur Squamous Epith Cells 0-2 (0-2) /HPF Urine Bacteria None Seen (None Seen) Hyaline Casts 0-2 (0-2) /LPF COVID-19 ([facility]) (Negative) COVID-19 Clin Com Influenza Type A ([facility]) (Negative) Influenza Type B ([facility]) (Negative) Influenza A & B Note Discharge Plan Discharge Clinical Impression: Gastroenteritis Patient Disposition: Home, Self-Care Instructions: Gastroenteritis (ED) Additional Instructions: Drink plenty of fluids Medicine for nausea as prescribed Follow-up with PCP if not better Prescriptions: New ondansetron 4 mg tablet,disintegrating 4 mg PO Q6-8H PRN (Reason: nausea and vomiting) Qty: 10 0RF No Action oxybutynin chloride 10 mg tablet extended release 24hr 10 mg PO DAILY 90 Days Qty: 90 2RF prednisone 20 mg tablet 40 mg PO DAILY 5 Days Qty: 10 0RF dextromethorphan-guaifenesin 10-100 mg/5 mL liquid 10 ml PO Q4-6H PRN (Reason: cough) Qty: 500 0RF clonazepam 0.5 mg tablet 1 tab PO DAILY venlafaxine 150 mg capsule,extended release 24hr 1 cap PO QAM lithium carbonate 450 mg Tablet Extended Release 450 mg PO DAILY risperidone 2 mg Tablet 2 mg PO DAILY topiramate 100 mg tablet 1 tab PO BEDTIME Qvar RediHaler 80 mcg/actuation Hfa Aerosol Breath Activated 1 inh INHALATION BID omega-3 fatty acids [Fish Oil Concentrate] 1,000 mg Capsule 1,000 mg PO BID cetirizine 10 mg tablet 1 tab PO QAM tolterodine 2 mg Tablet 2 mg PO BID montelukast 10 mg tablet 1 tab PO QPM fluticasone propionate [Flovent HFA] 220 mcg/actuation Hfa Aerosol Inhaler 2 puff INHALATION BID fluticasone propionate 50 mcg/actuation Jamul,Suspension 1 spray INTRANASAL BID Rx Instructions: administer into each nostril varenicline [Chantix] 1 mg Tablet 1 mg PO BID Shingrix (PF) 50 mcg/0.5 mL Suspension For Reconstitution 0.5 ml IM DAILY atorvastatin 40 mg tablet 1 tab PO DAILY tizanidine 2 mg tablet 1 tab PO BEDTIME PRN (Reason: Muscle Spasm) (DME) FreeStyle Lite Strips Strip MISCELLANEOUS BID (DME) blood-glucose meter [FreeStyle Lite Meter] Kit MISCELLANEOUS TID pantoprazole 40 mg tablet,delayed release (DR/EC) 1 tab PO DAILY lisinopril 10 mg Tablet 10 mg PO DAILY albuterol sulfate 90 mcg/actuation HFA aerosol inhaler 2 puff inhalation Q4-6H PRN (Reason: Shortness Of Breath Or Wheezing) metformin 500 mg tablet extended release 24 hr 1 tab PO QPM cholecalciferol (vitamin D3) [Vitamin D3] 25 mcg (1,000 unit) capsule 1 cap PO DAILY diclofenac sodium 1 % gel 2 g topical QID (DME) lancets [FreeStyle Lancets] 28 gauge misc MISCELLANEOUS BID
[2023-01-02] MEDS: ondansetron HCL 4 MG/2 ML VIAL IVPUSH (04:23)
[2023-01-02] MEDS: Ketorolac Tromethamine 30 MG/ML VIAL IVPUSH (04:24)
[2023-01-02] MEDS: 0.9 % Sodium Chloride 1,000 ML 999 ML IV (04:24)
[2023-01-02 04:35] LABS: SLIDE REVIEW VERIFIED
[2023-01-02 05:14] LABS: Appearance Urine Clear; Color Urine Yellow; Glucose Urine UA Negative (Negative); Leukocyte Esterase Urine Negative (Negative); Nitrite Urine Negative (Negative); PH 8.5 (5.0-9.0); Specific Gravity - Urine <= 1.005 (1.005-1.025); UMIC TRIGGER UACC YES; Urine Blood Trace (Negative); Urine Ketones Negative (Negative); Urine Protein Negative (Neg-Trace)
[2023-01-02 05:19] LABS: Bacteria Urine None Seen (None Seen); Hyaline Casts Urine 0-2 /LPF (0-2); RBC Urine 0-2 /HPF (0-2); Squamous Epithelial Cell Urine 0-2 /HPF (0-2); WBC Urine 0-5 /HPF (0-5)
[2023-01-02 06:11] VITALS: BP 116/72; PULSE 75; RESP 16; TEMP 36.6; O2SAT 97
== END 2023-01-02 06:15 | disposition home or self-care (01) ==
PROVIDERS: Emergency Provider Internal Medicine; PCP Nurse Practitioner Primary Care
DX: K52.9 Noninfective gastroenteritis and colitis, unspecified (principal); I49.8 Other specified cardiac arrhythmias; Z20.822 Contact with and (suspected) exposure to COVID-19; Z20.828 Contact with and (suspected) exposure to other viral communicable diseases; Z79.899 Other long term (current) drug therapy
CPT/HCPCS: 36415; 80053; 81001; 83690; 84484; 85025; 87502; 87635; 93005; 96374; 96375; 99284; 99285; J1885; J2405

== ENCOUNTER 2023-04-18 15:45 | Outpatient (REF) | payer MEDICARE, MEDICAID, SELFPAY ==
--- NOTE | ~2023-04-18 | XR_ITS ---
EXAMINATION: XR KNEE, LEFT CLINICAL INFORMATION: Leg pain COMPARISON: None available. TECHNIQUE: Four views of the left knee. FINDINGS: No acute visible fracture or dislocation. Mild multicompartment degenerative changes. Mild narrowing medial femorotibial compartment. Mild to moderate narrowing of the lateral patellofemoral compartment. Periarticular aspect along the patella and distal femoral condyle. Joint spaces and alignment are otherwise maintained. Trace knee joint effusion. Soft tissues are unremarkable. XR/XR knee LT 4V IMPRESSION: 1. No acute visible fracture or dislocation. 2. Mild multicompartment degenerative changes. 3. Trace knee joint effusion.
--- NOTE | ~2023-04-18 | XR_ITS ---
EXAMINATION: XR LUMBOSACRAL SPINE WITH OBLIQUES CLINICAL INFORMATION: Left leg pain COMPARISON: None available. TECHNIQUE: 5 views of the lumbar spine FINDINGS: 5 nonrib-bearing lumbar-type vertebral bodies. No acute visible fracture or dislocation. Mild to moderate multilevel degenerative changes with disc space narrowing, osteophyte from it, and lower lumbar spine facet arthropathy. Vertebral body heights and disc spaces are otherwise maintained. Posterior elements are intact. Paraspinal soft tissues are unremarkable. Bowel gas is unremarkable. Pelvic phleboliths are noted. Surgical clips in the upper quadrant abdomen. XR/XR lumbar spine 4V min IMPRESSION: 1. No acute visible fracture or dislocation. 2. Mild to moderate multilevel degenerative changes.
== END 2023-04-18 15:46 | disposition home or self-care (01) ==
LOC: HO.US 15:45
PROVIDERS: Absent Provider Registered Nurse; Visit Provider Registered Nurse
DX: M79.605 Pain in left leg (principal); M79.89 Other specified soft tissue disorders
CPT/HCPCS: 72110; 73564

== ENCOUNTER 2023-05-31 14:10 | Outpatient (REF) | payer MEDICARE, MEDICAID, SELFPAY ==
--- NOTE | ~2023-05-31 | XR_ITS ---
EXAMINATION: XR CHEST CLINICAL INFORMATION: Cough. COMPARISON: Chest radiograph 11/06/2021. TECHNIQUE: 2 views of the chest were obtained. FINDINGS: Normal heart size. Increased diffuse interstitial thickening. No focal airspace consolidation, pleural effusion or pneumothorax. Thoracic spondylosis. Right upper quadrant surgical clips. No acute osseous findings. XR/XR chest 2V IMPRESSION: Increased interstitial thickening which is nonspecific and could be associated with asthma, bronchitis, reactive airways disease or atypical infections.
== END 2023-05-31 14:11 | disposition home or self-care (01) ==
LOC: HO.HHCX 14:10
PROVIDERS: Visit Provider Family Medicine
DX: J45.21 Mild intermittent asthma with (acute) exacerbation (principal)
CPT/HCPCS: 71046

== ENCOUNTER 2023-05-31 23:55 | Emergency (ER) | payer MEDICARE, MEDICAID, SELFPAY ==
--- NOTE | ~2023-05-31 | XR_ITS ---
EXAMINATION: XR CHEST CLINICAL INFORMATION: Cough, dyspnea for one week COMPARISON: 05/31/2023 TECHNIQUE: 2 views of the chest were obtained. FINDINGS: Lung volumes are symmetric. No focal consolidation is seen. Mild prominence of the bronchovascular structures is again noted, which could reflect acute or chronic airways disease. No evidence of pneumothorax, pleural effusion, or overt pulmonary edema. The cardiomediastinal contour is unremarkable. No acute osseous findings are seen. XR/XR chest 2V IMPRESSION: Mild prominence of the bronchovascular structures, which could reflect acute or chronic airways disease. No focal consolidation.
--- NOTE | 2023-05-31 23:57 | ECG_ITS ---
Test Reason : chest pain Blood Pressure : / mmHG Vent. Rate : 092 BPM Atrial Rate : 092 BPM P-R Int : 152 ms QRS Dur : 082 ms QT Int : 378 ms P-R-T Axes : 055 023 040 degrees QTc Int : 467 ms Normal sinus rhythm Normal ECG When compared with ECG of 01-JAN-2023 22:47, No significant change was found Referred By: Generic ED Physician Electronically Signed By:LILIBETH PERRIN
[2023-06-01 00:02] VITALS: BP 119/74; PULSE 80; O2SAT 97
[2023-06-01 00:11] VITALS: BP 133/74; PULSE 97; RESP 18; TEMP 37.1; O2SAT 96
[2023-06-01 00:15] VITALS: BP 119/63; PULSE 92; RESP 18; O2SAT 96; BMI 31.8
--- NOTE | 2023-06-01 00:17 | ED_ITS ---
HPI - Chest Pain General Chief Complaint: Upper Respiratory Symptoms Stated Complaint: CP Time Seen by Provider: 06/01/23 00:15 Source: patient Mode of arrival: ambulatory Limitations: no limitations History of Present Illness HPI narrative: 57-year-old female with history of asthma presents with cough with shortness breath and pleuritic chest pain. Symptoms started 1 week ago. The symptoms are progressively getting worse. She describes her symptoms as severe. She is unable to sleep. She has yellow mucus production. She had fevers previously but no active fevers or chills. She denies any lower extremity edema, orthopnea, PND, chest pain with exertion. No prior treatment. She does report having wheezes similar to asthma in the past. Related Data Home Medications Medication Instructions Recorded Confirmed albuterol sulfate 90 mcg/actuation 2 puff inhalation Q4-6H PRN 05/30/22 05/30/22 aerosol inhaler Shortness Of Breath Or Wheezing atorvastatin 40 mg tablet 1 tab PO DAILY 05/30/22 05/30/22 beclomethasone dipropionate 80 1 inh inhalation BID 05/30/22 05/30/22 mcg/actuation HFA breath activated aerosol (Qvar RediHaler) blood sugar diagnostic (FreeStyle 05/30/22 05/30/22 Lite Strips) blood-glucose meter (FreeStyle 05/30/22 05/30/22 Lite Meter kit) cetirizine 10 mg tablet 1 tab PO QAM allergies 05/30/22 05/30/22 cholecalciferol (vitamin D3) 25 1 cap PO DAILY 05/30/22 05/30/22 mcg (1,000 unit) capsule (Vitamin D3) clonazepam 0.5 mg tablet 1 tab PO DAILY 05/30/22 05/30/22 diclofenac sodium 1 % topical gel 2 g topical QID 05/30/22 05/30/22 fluticasone propionate 220 2 puff inhalation BID 05/30/22 05/30/22 mcg/actuation HFA aerosol inhaler (Flovent HFA) fluticasone propionate 50 1 spray intranasal BID 05/30/22 05/30/22 mcg/actuation nasal spray,suspension lancets 28 gauge (FreeStyle 05/30/22 05/30/22 Lancets) lisinopril 10 mg tablet 10 mg PO DAILY 05/30/22 05/30/22 lithium carbonate 450 mg 450 mg PO DAILY 05/30/22 05/30/22 tablet,extended release metformin 500 mg tablet,extended 1 tab PO QPM 05/30/22 05/30/22 release 24 hr montelukast 10 mg tablet 1 tab PO QPM 05/30/22 05/30/22 omega-3 fatty acids 1,000 mg 1,000 mg PO BID 05/30/22 05/30/22 capsule pantoprazole 40 mg tablet,delayed 1 tab PO DAILY 05/30/22 05/30/22 release risperidone 2 mg tablet 2 mg PO DAILY 05/30/22 05/30/22 tizanidine 2 mg tablet 1 tab PO BEDTIME PRN Muscle Spasm 05/30/22 05/30/22 tolterodine 2 mg tablet 2 mg PO BID 05/30/22 05/30/22 topiramate 100 mg tablet 1 tab PO BEDTIME 05/30/22 05/30/22 varenicline 1 mg tablet (Chantix) 1 mg PO BID 05/30/22 05/30/22 varicella-zoster glycoE [id number] 0.5 ml IM DAILY 05/30/22 05/30/22 adj(PF) 50 mcg/0.5 mL IM susp, kit (Shingrix (PF)) venlafaxine 150 mg 1 cap PO QAM 05/30/22 05/30/22 capsule,extended release 24 hr Previous Rx's Medication Instructions Recorded oxybutynin chloride 10 mg 10 mg PO DAILY 90 days #90 tabs 07/01/20 tablet,extended release 24 hr dextromethorphan-guaifenesin 10 10 ml PO Q4-6H PRN cough #500 mL 11/06/21 mg-100 mg/5 mL oral liquid prednisone 20 mg tablet 40 mg (2 x 20 mg) PO DAILY 5 days 11/06/21 #10 tabs ondansetron 4 mg disintegrating 4 mg PO Q6-8H PRN nausea and 01/02/23 tablet vomiting #10 tabs albuterol sulfate 2.5 mg/3 mL 2.5 mg (3 mL) inhalation QID PRN 06/01/23 (0.083 %) solution for nebulization shortness of breath or wheezing #90 mL azithromycin 250 mg tablet 250 mg PO DAILY 4 days #4 tabs 06/01/23 prednisone 50 mg tablet 50 mg PO DAILY #4 tabs 06/01/23 Allergies Allergy/AdvReac Type Severity Reaction Status Date / Time latex [LATEX] Allergy Intermediate ITCHING, Verified 06/01/23 00:15 REDNESS perfume [PERFUME] Allergy Unknown TONGUE Verified 06/01/23 00:15 OROZCO DETERGENT Allergy Unknown RASH Uncoded 06/01/23 00:15 Review of Systems Review of Systems: CONSTITUTIONAL: Denies weight loss, fever and chills. HEENT: Denies changes in vision and hearing. RESPIRATORY: + SOB and cough. CV: Denies palpitations + CP. GI: Denies abdominal pain, nausea, vomiting and diarrhea. : Denies dysuria and urinary frequency. MSK: Denies myalgia and joint pain. SKIN: Denies rash and pruritus. NEUROLOGICAL: Denies headache and syncope. PSYCHIATRIC: Denies recent changes in mood. Denies anxiety and depression. All other ROS are negative unless in HPI PMFSH Past Medical History Medical History Asthma Bipolar disorder, unspecified Depression Diabetes mellitus type 2, uncomplicated Environmental allergies Fatty liver disease, nonalcoholic History of kidney stones Hyperlipidemia Hypertension Positive PPD Sleep apnea, obstructive Surgical History H/O removal of neck cyst History of cholecystectomy Family History Family History Other No family history of cancer Social History Social History Household Members: None Housing: Apartment Are you a primary progressive care manager to a significant other at home: No Do you presently have visiting nurse or other home services: Yes Patient Tobacco Use Status: Current everyday Tobacco user Tobacco use type: Cigarette Advance Directives: No Advance Directives Information Provided: Yes service: No Current occupational status: employed and disabled Current occupation: cafeteria Physical Exam Vital Signs: Vital Signs: Last Vital Signs Temp 98.7 F 06/01/23 00:11 Pulse 92 06/01/23 00:31 Resp 14 06/01/23 00:31 BP 119/63 06/01/23 00:15 Pulse Ox 96 06/01/23 00:15 O2 Del Method Room Air 06/01/23 00:15 BMI result Body Mass Index 31.8 GEN: Well developed, no acute distress, alert, oriented HEENT: Normocephalic, atraumatic, normal external ears, nose appears normal, no oropharyngeal edema or exudates Eyes: Normal to appearance Neck: Supple, no lymphadenopathy Respiratory: Prolonged expiration and expiratory wheezes, no accessory muscle use Cardiovascular: Regular rate and rhythm, no murmurs rubs or gallops Abdomen: Soft, nontender, nondistended, no guarding, no rebound Back: No CVA tenderness Extremities: No clubbing cyanosis or edema Neurologic: No focal neurologic deficits, cranial nerves 2-12 intact, strength is 5/5 bilaterally Skin: No rash Course Course Course Narrative: Patient is currently receiving a nebulizer. She is feeling much better. She feels less short of breath and is coughing much less. I will discharge the patient with asthma exacerbation with likely bacterial bronchitis. She will start azithromycin, continue steroids and follow-up with her primary care provider. Medications Administered Discontinued Medications Generic Name Dose Route Start Last Admin Trade Name Freq PRN Reason Stop Dose Admin Albuterol Sulfate 2.5 mg/ 0 mg 06/01/23 00:30 06/01/23 00:41 Albuterol/Ipratropium 3 ml INHALE 06/01/23 00:31 5 dose ONCE ONE Administration Medical Decision Making Medical Decision Making [facility] Narrative: Patient presents with dyspnea, pleuritic chest pain, cough mucus production. Examination revealed prolonged expiration, expiratory wheezes with an oxygen saturation 96% on room air. Differential diagnosis includes asthma exacerbation, bronchitis, pneumonia, COVID, viral syndrome, influenza. Will obtain a chest x-ray, viral serology. Will treat patient with steroids, nebulizer treatment. Consider antibiotic treatment. Patient is not significantly hypoxic. There is an off chance patient may require hospitalization but at this time I suspect patient will be able to be discharged home. Differential Diagnosis Differential Diagnoses: The differential diagnosis associated with the presentation includes (See above) Admission/Observation Consideration of admission/observation: Escalation of care including admission/observation considered Lab Data [facility] Lab Attestation statement: I reviewed the patient's lab results. Labs: Lab Results 06/01/23 Range/Units 00:24 COVID-19 (CLAUDY) Negative (Negative) COVID-19 Clin Com See Note Influenza Type A (LUIS) Negative (Negative) Influenza Type B (LUIS) Negative (Negative) Influenza A & B Note See Note Independent Interpretation I performed an independent interpretation of an: EKG (Normal sinus rhythm heart rate 92, no acute ST elevations depressions, normal intervals. Essentially normal EKG.) and Plain X-Ray (Chest: No acute cardiopulmonary disease) Tests considered The following testing was considered but not selected: CBC Prescription Management I considered prescription management with: Antiviral and Antibiotic Chronic Conditions Patient?s care impacted by: Diabetes and Hypertension Discharge Plan Discharge Clinical Impression: Bronchitis, Asthma exacerbation Patient Disposition: Home, Self-Care Instructions: Asthma (DC), How to Use a Metered-Dose Inhaler (ED), Acute Bronchitis (ED) Prescriptions: New azithromycin 250 mg tablet 250 mg PO DAILY 4 Days Qty: 4 0RF Rx Instructions: start on day 2 of therapy prednisone 50 mg tablet 50 mg PO DAILY Qty: 4 0RF albuterol sulfate 2.5 mg /3 mL (0.083 %) solution for nebulization 2.5 mg inhalation QID PRN (Reason: shortness of breath or wheezing) Qty: 90 0RF No Action oxybutynin chloride 10 mg tablet extended release 24hr 10 mg PO DAILY 90 Days Qty: 90 2RF prednisone 20 mg tablet 40 mg PO DAILY 5 Days Qty: 10 0RF dextromethorphan-guaifenesin 10-100 mg/5 mL liquid 10 ml PO Q4-6H PRN (Reason: cough) Qty: 500 0RF clonazepam 0.5 mg tablet 1 tab PO DAILY venlafaxine 150 mg capsule,extended release 24hr 1 cap PO QAM lithium carbonate 450 mg Tablet Extended Release 450 mg PO DAILY risperidone 2 mg Tablet 2 mg PO DAILY topiramate 100 mg tablet 1 tab PO BEDTIME Qvar RediHaler 80 mcg/actuation Hfa Aerosol Breath Activated 1 inh INHALATION BID omega-3 fatty acids [Fish Oil Concentrate] 1,000 mg Capsule 1,000 mg PO BID cetirizine 10 mg tablet 1 tab PO QAM tolterodine 2 mg Tablet 2 mg PO BID montelukast 10 mg tablet 1 tab PO QPM fluticasone propionate [Flovent HFA] 220 mcg/actuation Hfa Aerosol Inhaler 2 puff INHALATION BID fluticasone propionate 50 mcg/actuation [place],Suspension 1 spray INTRANASAL BID Rx Instructions: administer into each nostril varenicline [Chantix] 1 mg Tablet 1 mg PO BID Shingrix (PF) 50 mcg/0.5 mL Suspension For Reconstitution 0.5 ml IM DAILY atorvastatin 40 mg tablet 1 tab PO DAILY tizanidine 2 mg tablet 1 tab PO BEDTIME PRN (Reason: Muscle Spasm) (DME) FreeStyle Lite Strips Strip MISCELLANEOUS BID (DME) blood-glucose meter [FreeStyle Lite Meter] Kit MISCELLANEOUS TID pantoprazole 40 mg tablet,delayed release (DR/EC) 1 tab PO DAILY lisinopril 10 mg Tablet 10 mg PO DAILY albuterol sulfate 90 mcg/actuation HFA aerosol inhaler 2 puff inhalation Q4-6H PRN (Reason: Shortness Of Breath Or Wheezing) metformin 500 mg tablet extended release 24 hr 1 tab PO QPM cholecalciferol (vitamin D3) [Vitamin D3] 25 mcg (1,000 unit) capsule 1 cap PO DAILY diclofenac sodium 1 % gel 2 g topical QID (DME) lancets [FreeStyle Lancets] 28 gauge misc MISCELLANEOUS BID ondansetron 4 mg tablet,disintegrating 4 mg PO Q6-8H PRN (Reason: nausea and vomiting) Qty: 10 0RF Referrals: Physician,Unknown J [Primary Care Provider] - 3 days (PMD )
[2023-06-01 00:31] VITALS: PULSE 92; RESP 14; O2SAT 96
[2023-06-01] MEDS: Albuterol Sulfate 2.5 MG, Albuterol/Iprat 2.5/0.5MG 3 ML 3 ML INHALE (00:41)
[2023-06-01 00:46] LABS: COVID-19 Test Negative (Negative); IDNOW Serial# 08D9AD1C; IDNOW Serial# BCCEAD1C; Influenza A Negative (Negative); Influenza B2 Negative (Negative)
[2023-06-01] MEDS: predniSONE 20 MG TABLET 60 MG PO (01:26)
[2023-06-01] MEDS: Azithromycin 500 MG TABLET PO (01:26)
[2023-06-01 01:39] VITALS: PULSE 109
[2023-06-01 01:55] VITALS: O2SAT 95
== END 2023-06-01 01:50 | disposition home or self-care (01) ==
PROVIDERS: Emergency Provider Emergency Medicine
DX: J45.901 Unspecified asthma with (acute) exacerbation (principal); R07.89 Other chest pain; R06.02 Shortness of breath; R05.9 Cough, unspecified; Z20.822 Contact with and (suspected) exposure to COVID-19; Z20.828 Contact with and (suspected) exposure to other viral communicable diseases; Z79.899 Other long term (current) drug therapy
CPT/HCPCS: 71046; 87502; 87635; 93005; 94640; 99284; 99285

== ENCOUNTER 2023-06-06 12:31 | Emergency (ER) | payer MEDICARE, MEDICAID, SELFPAY ==
--- NOTE | ~2023-06-06 | XR_ITS ---
EXAMINATION: XR CHEST CLINICAL INFORMATION: Shortness of breath COMPARISON: 06/01/2023 TECHNIQUE: Frontal view of the chest was obtained. FINDINGS: No significant abnormality is noted involving the heart, lungs, mediastinum, bony thorax or soft tissues. XR/XR chest 1V IMPRESSION: Unremarkable examination.
[2023-06-06 13:07] VITALS: BP 127/82; PULSE 99; RESP 16; TEMP 36.9; O2SAT 97; BMI 31.8
--- NOTE | 2023-06-06 13:07 | ED.SOB ---
HPI - SOB/Dyspnea General Chief Complaint: Upper Respiratory Symptoms Stated Complaint: SOB Time Seen by Provider: 06/06/23 15:43 Source: patient and RN notes reviewed Mode of arrival: ambulatory Limitations: no limitations History of Present Illness HPI Narrative: This is a 57-year-old female with history of asthma, presenting to the emergency department with complaints of ongoing productive cough and shortness of breath x 1 week. Pt went to her PCP on 05/31 for these symptoms and was started on Augmentin. She was then seen in the ER for these symptoms on 06/01 where she was diagnosed with bronchitis and was discharged on z-braxton and prednisone. She states that she was unable to start the Z-braxton that she was prescribed but has been taking the Augmentin and prednisone as directed for her symptoms. She has a nebulizer and inhaler at home which she has not been using as her home health aide is only allowed to administer medications to her. Denies any fevers, congestion, ear pain, sore throat, chest pain, AP, nausea, vomiting or diarrhea. No other complaints or concerns at this time. MD elicited complaint: shortness of breath and cough Pertinent past history: asthma Onset (ago): week(s) Context: recent illness Timing: constant and improved Exacerbating factors: nothing Relieving factors: bronchodilators Known history of: asthma Associated symptoms: wheezing and sputum production Treatment prior to arrival: none Related Data Home oxygen amount: none Home Medications Medication Instructions Recorded Confirmed albuterol sulfate 90 mcg/actuation 2 puff inhalation Q4-6H PRN 05/30/22 05/30/22 aerosol inhaler Shortness Of Breath Or Wheezing atorvastatin 40 mg tablet 1 tab PO DAILY 05/30/22 05/30/22 beclomethasone dipropionate 80 1 inh inhalation BID 05/30/22 05/30/22 mcg/actuation HFA breath activated aerosol (Qvar RediHaler) blood sugar diagnostic (FreeStyle 05/30/22 05/30/22 Lite Strips) blood-glucose meter (FreeStyle 05/30/22 05/30/22 Lite Meter kit) cetirizine 10 mg tablet 1 tab PO QAM allergies 05/30/22 05/30/22 cholecalciferol (vitamin D3) 25 1 cap PO DAILY 05/30/22 05/30/22 mcg (1,000 unit) capsule (Vitamin D3) clonazepam 0.5 mg tablet 1 tab PO DAILY 05/30/22 05/30/22 diclofenac sodium 1 % topical gel 2 g topical QID 05/30/22 05/30/22 fluticasone propionate 220 2 puff inhalation BID 05/30/22 05/30/22 mcg/actuation HFA aerosol inhaler (Flovent HFA) fluticasone propionate 50 1 spray intranasal BID 05/30/22 05/30/22 mcg/actuation nasal spray,suspension lancets 28 gauge (FreeStyle 05/30/22 05/30/22 Lancets) lisinopril 10 mg tablet 10 mg PO DAILY 05/30/22 05/30/22 lithium carbonate 450 mg 450 mg PO DAILY 05/30/22 05/30/22 tablet,extended release metformin 500 mg tablet,extended 1 tab PO QPM 05/30/22 05/30/22 release 24 hr montelukast 10 mg tablet 1 tab PO QPM 05/30/22 05/30/22 omega-3 fatty acids 1,000 mg 1,000 mg PO BID 05/30/22 05/30/22 capsule pantoprazole 40 mg tablet,delayed 1 tab PO DAILY 05/30/22 05/30/22 release risperidone 2 mg tablet 2 mg PO DAILY 05/30/22 05/30/22 tizanidine 2 mg tablet 1 tab PO BEDTIME PRN Muscle Spasm 05/30/22 05/30/22 tolterodine 2 mg tablet 2 mg PO BID 05/30/22 05/30/22 topiramate 100 mg tablet 1 tab PO BEDTIME 05/30/22 05/30/22 varenicline 1 mg tablet (Chantix) 1 mg PO BID 05/30/22 05/30/22 varicella-zoster glycoE [id number] 0.5 ml IM DAILY 05/30/22 05/30/22 adj(PF) 50 mcg/0.5 mL IM susp, kit (Shingrix (PF)) venlafaxine 150 mg 1 cap PO QAM 05/30/22 05/30/22 capsule,extended release 24 hr Previous Rx's Medication Instructions Recorded oxybutynin chloride 10 mg 10 mg PO DAILY 90 days #90 tabs 07/01/20 tablet,extended release 24 hr dextromethorphan-guaifenesin 10 10 ml PO Q4-6H PRN cough #500 mL 11/06/21 mg-100 mg/5 mL oral liquid prednisone 20 mg tablet 40 mg (2 x 20 mg) PO DAILY 5 days 11/06/21 #10 tabs ondansetron 4 mg disintegrating 4 mg PO Q6-8H PRN nausea and 01/02/23 tablet vomiting #10 tabs albuterol sulfate 2.5 mg/3 mL 2.5 mg (3 mL) inhalation QID PRN 06/01/23 (0.083 %) solution for nebulization shortness of breath or wheezing #90 mL azithromycin 250 mg tablet 250 mg PO DAILY 4 days #4 tabs 06/01/23 prednisone 50 mg tablet 50 mg PO DAILY #4 tabs 06/01/23 albuterol sulfate 2.5 mg/0.5 mL 2.5 mg (0.5 mL) inhalation Q4-6H 06/06/23 solution for nebulization PRN shortness of breath or wheezing #30 ea albuterol sulfate 90 mcg/actuation 2 puff inhalation Q6H PRN 06/06/23 aerosol inhaler shortness of breath or wheezing #6.7 grams Allergies Allergy/AdvReac Type Severity Reaction Status Date / Time latex [LATEX] Allergy Intermediate ITCHING, Verified 06/06/23 13:10 REDNESS perfume [PERFUME] Allergy Unknown TONGUE Verified 06/06/23 13:10 OROZCO DETERGENT Allergy Unknown RASH Uncoded 06/06/23 13:10 Review of Systems Review of Systems: Yes all other systems are reviewed and are negative Constitutional: Constitutional: Reports as per [facility] Past Medical History Medical History Asthma Bipolar disorder, unspecified Depression Diabetes mellitus type 2, uncomplicated Environmental allergies Fatty liver disease, nonalcoholic History of kidney stones Hyperlipidemia Hypertension Positive PPD Sleep apnea, obstructive Surgical History H/O removal of neck cyst History of cholecystectomy Family History Family History Other No family history of cancer Social History Social History Household Members: None Housing: Apartment Are you a primary healthcare liaison to a significant other at home: No Do you presently have visiting nurse or other home services: Yes Alcohol intake: never Patient Tobacco Use Status: Current everyday Tobacco user Tobacco use type: Cigarette Smoked in Last 30 Days: Yes Use of substances other than those prescribed or required for medical reasons: No Advance Directives: No Advance Directives Information Provided: No service: No Current occupational status: employed and disabled Current occupation: cafeteria Physical Exam Vital Signs: Vital Signs: Last Vital Signs Temp 97.6 F 06/06/23 18:06 Pulse 83 06/06/23 18:06 Resp 18 06/06/23 18:06 BP 152/82 H 06/06/23 18:06 Pulse Ox 99 06/06/23 18:06 O2 Del Method Room Air 06/06/23 18:06 BMI result Body Mass Index 31.8 Const: General: cooperative, comfortable and no acute distress Orientation/consciousness: patient oriented x3 Limitations: no limitations HEENT: Head: Yes normal to inspection, Yes normocephalic and Yes atraumatic Ears: hearing grossly normal bilaterally General nose exam: Normal external nose present Face and sinus: Yes normal facial exam Mouth: Normal oral and palatal mucosa present, oropharynx normal and moist mucous membranes Throat: Yes posterior oropharynx normal Eyes: General: appearance normal, both eyes and all related structures Eyelids: Yes eyelids normal Conjunctivae: conjunctivae normal Sclerae: sclerae normal Pupils: Equal, round and reactive pupils present EOM: EOMs intact bilaterally Neck: Neck: Yes normal visual inspection, Yes full ROM and Yes no lymphadenopathy Lymphatic: no lymphadenopathy noted Chest: Chest palpation & inspection: normal inspection of the chest Resp: Other: Lungs with expiratory wheezes and coarse crackles at bilateral lung bases. Effort & Inspection: normal respiratory effort and able to speak in complete sentences Cardio: Rate: regular rate Rhythm: regular rhythm Heart sounds: S1 normal heart sound present and S2 normal heart sound present GI: Inspection: Yes normal to inspection Skin: General skin exam: no rashes or lesions noted Trauma: no lacerations or abrasions Wounds: no wounds Neuro: General: patient oriented x3 and moves all extremities Cranial nerves: Yes Equal, round and reactive pupils present Extrem: General: Yes normal to inspection Right upper extremity: normal to inspection Left upper extremity: normal to inspection Right lower extremity: normal to inspection Left lower extremity: normal to inspection Course Course Course Narrative: RME: 57-year-old female with history of asthma, c/o continued SOB & cough x1 week. Patient was recently seen & tx in our ED on 06/01 for similar sx Dx w/Bronchitis started on Z-braxton & prednisone which she reports compliance, w/o relief of sx. denies cp, fever +diffuse exp wheeze/coarse lung sounds EKG, labs, CXR, ED bronch protocol ordered Full HPI, ROS and PE to be performed by primary ED provider. Medications Administered Discontinued Medications Generic Name Dose Route Start Last Admin Trade Name Freq PRN Reason Stop Dose Admin Albuterol Sulfate 8 puff 06/06/23 15:19 06/06/23 15:32 Albuterol Sulfate 90 Mcg 8 Gm Inhaler INHALE 06/06/23 15:20 8 puff ONCE ONE Administration Medical Decision Making Medical Decision Making [facility] Narrative: 57 y/o F presenting to the ER for evaluation of conntinued ongoing cough and SOB. On arrival, pt nontoxic appearing. Pt with normal vital signs with O2 saturation of 97% on RA. Lungs with coarse lung sounds and expiratory wheezes at bilateral lung bases. DDX including URI, bronchitis, pneumonia. Less likely CHF, pneumothorax. Pt given multiple albuterol inhaler puffs which has provided her with full relief. Her lung sounds have improved. I suggested second tx, however pt declines and would like to be discharged. Labs were performed, mild leukocytosis, chemistry panel nondiagnostic. Negative troponin, given duration of symptoms without any chest pain, ACS is unlikely. Chest x-ray with no signs of PNE. Given pt is already on prednisone, I encouraged her to continue at home nebulizer medication and inhalers and finish ABX. Advised to f/u with her PCP for further evaluation and management of her symptoms. Given return precautions. Pt understands and agrees with plan. Stable for d/c. Differential Diagnosis Differential Diagnoses: The differential diagnosis associated with the presentation includes see above Admission/Observation Consideration of admission/observation: Escalation of care including admission/observation considered Patient would have been admitted to the hospital had her work up had any findings where hospital admission was appropriate and her clinical presentation warranted hospital admission. Lab Data [facility] Lab Attestation statement: I reviewed the patient's lab results. see above 06/06/23 13:29 10/04/23 13:29 Labs: Lab Results 06/06/23 Range/Units 13:29 WBC 13.6 H (4.8-10.8) X10*3/uL RBC 5.55 H (4.20-5.50) X10*6/uL Hgb 15.2 (12.0-16.0) g/dl Hct 47.4 H (37.0-47.0) % MCV 85.4 (80.0-98.0) fL MCH 27.4 (27.0-33.0) pg MCHC 32.1 (31.0-35.0) g/dl RDW 14.1 (11.0-16.0) % Plt Count 218 D (160-400) X10*3/uL MPV 10.9 (9.4-12.3) fL Immature Gran % (Auto) 0.4 (0.0-0.4) % Neut % (Auto) 46.2 (45-73) % Lymph % (Auto) 48.2 H (20-40) % Walton % (Auto) 4.0 (2-11) % Eos % (Auto) 0.4 (0-4) % Baso % (Auto) 0.8 (0-2) % Lymph # (Auto) 6.6 H (1.2-4.9) X10*3/uL Walton # (Auto) 0.6 (0.1-1.2) X10*3/uL Eos # (Auto) 0.1 (0.0-0.4) X10*3/uL Baso # (Auto) 0.1 (0.0-0.2) X10*3/uL Abs Immat Gran (auto) 0.05 H (0.00-0.03) X10*3/uL Absolute Neuts (auto) 6.3 (2.0-8.3) x10*3/uL Absolute Nucleated RBC 0.000 (0.0-0.012) X10*3/uL Nucleated RBC % (auto) 0.0 (0.0-0.2) /100WBC Smear Tech's Comments VERIFIED Sodium 138 (135-145) mmol/L Potassium 4.1 D (3.3-5.1) mmol/L Chloride 104 (96-108) mmol/L Carbon Dioxide 26 (22-29) mmol/L Anion Gap 12 (12-20) BUN 6 L (9-16) mg/dL Creatinine 0.78 (0.5-1.4) mg/dL Estim Creat Clear Calc 71.4 Estimated GFR > 60 Random Glucose 170 H (60-115) mg/dL Calcium 10.1 (8.4-10.2) mg/dL Troponin I High Sens < 2.7 (<3.5-17.0) ng/L Independent Interpretation I performed an independent interpretation of an: EKG Interpretation: EKG with a ventricular rate of 92bpm, SD interval 142, QTC 440. No st elevation or depression. Similar appearing EKG from previous on 06/01/2023. Radiology Impression Discussion of test interpretation with radiology: I have reviewed the radiologist's reading. Radiologist Impression: EXAMINATION: XR CHEST CLINICAL INFORMATION: Shortness of breath COMPARISON: 06/01/2023 TECHNIQUE: Frontal view of the chest was obtained. FINDINGS: No significant abnormality is noted involving the heart, lungs, mediastinum, bony thorax or soft tissues. XR/XR chest 1V IMPRESSION: Unremarkable examination. Dictated By: Brennan Altman MD Discharge Plan Discharge Clinical Impression: Upper respiratory infection Patient Disposition: Home, Self-Care Instructions: Acute Bronchitis (ED), Wheezing (ED) Additional Instructions: Your chest x-ray did not show a pneumonia. Continue taking antibiotic as prescribed. Your workup today was reassuring. Continue using albuterol inhaler and albuterol nebulizer at home. Using this every 4-6 hours can help alleviate your symptoms. Please follow-up with your primary care physician regarding this visit, please make an appointment for tomorrow. If any new or worsening symptoms occur including but not limited to worsening shortness of breath, chest pain, please return for re-evaluation. Prescriptions: New albuterol sulfate 2.5 mg/0.5 mL solution for nebulization 2.5 mg inhalation Q4-6H PRN (Reason: shortness of breath or wheezing) Qty: 30 0RF albuterol sulfate 90 mcg/actuation HFA aerosol inhaler 2 puff inhalation Q6H PRN (Reason: shortness of breath or wheezing) Qty: 6.7 0RF No Action oxybutynin chloride 10 mg tablet extended release 24hr 10 mg PO DAILY 90 Days Qty: 90 2RF prednisone 20 mg tablet 40 mg PO DAILY 5 Days Qty: 10 0RF dextromethorphan-guaifenesin 10-100 mg/5 mL liquid 10 ml PO Q4-6H PRN (Reason: cough) Qty: 500 0RF clonazepam 0.5 mg tablet 1 tab PO DAILY venlafaxine 150 mg capsule,extended release 24hr 1 cap PO QAM lithium carbonate 450 mg Tablet Extended Release 450 mg PO DAILY risperidone 2 mg Tablet 2 mg PO DAILY topiramate 100 mg tablet 1 tab PO BEDTIME Qvar RediHaler 80 mcg/actuation Hfa Aerosol Breath Activated 1 inh INHALATION BID omega-3 fatty acids [Fish Oil Concentrate] 1,000 mg Capsule 1,000 mg PO BID cetirizine 10 mg tablet 1 tab PO QAM tolterodine 2 mg Tablet 2 mg PO BID montelukast 10 mg tablet 1 tab PO QPM fluticasone propionate [Flovent HFA] 220 mcg/actuation Hfa Aerosol Inhaler 2 puff INHALATION BID fluticasone propionate 50 mcg/actuation [place],Suspension 1 spray INTRANASAL BID Rx Instructions: administer into each nostril varenicline [Chantix] 1 mg Tablet 1 mg PO BID Shingrix (PF) 50 mcg/0.5 mL Suspension For Reconstitution 0.5 ml IM DAILY atorvastatin 40 mg tablet 1 tab PO DAILY tizanidine 2 mg tablet 1 tab PO BEDTIME PRN (Reason: Muscle Spasm) (DME) FreeStyle Lite Strips Strip MISCELLANEOUS BID (DME) blood-glucose meter [FreeStyle Lite Meter] Kit MISCELLANEOUS TID pantoprazole 40 mg tablet,delayed release (DR/EC) 1 tab PO DAILY lisinopril 10 mg Tablet 10 mg PO DAILY albuterol sulfate 90 mcg/actuation HFA aerosol inhaler 2 puff inhalation Q4-6H PRN (Reason: Shortness Of Breath Or Wheezing) metformin 500 mg tablet extended release 24 hr 1 tab PO QPM cholecalciferol (vitamin D3) [Vitamin D3] 25 mcg (1,000 unit) capsule 1 cap PO DAILY diclofenac sodium 1 % gel 2 g topical QID (DME) lancets [FreeStyle Lancets] 28 gauge misc MISCELLANEOUS BID ondansetron 4 mg tablet,disintegrating 4 mg PO Q6-8H PRN (Reason: nausea and vomiting) Qty: 10 0RF azithromycin 250 mg tablet 250 mg PO DAILY 4 Days Qty: 4 0RF Rx Instructions: start on day 2 of therapy prednisone 50 mg tablet 50 mg PO DAILY Qty: 4 0RF albuterol sulfate 2.5 mg /3 mL (0.083 %) solution for nebulization 2.5 mg inhalation QID PRN (Reason: shortness of breath or wheezing) Qty: 90 0RF Interventions: ED Discharge Assessment Last Done: 06/06/23 18:22 Discharge Date/Time: 06/06/23 18:22
--- NOTE | 2023-06-06 13:11 | ECG_ITS ---
Test Reason : SOB Blood Pressure : / mmHG Vent. Rate : 092 BPM Atrial Rate : 092 BPM P-R Int : 142 ms QRS Dur : 080 ms QT Int : 356 ms P-R-T Axes : 041 002 047 degrees QTc Int : 440 ms Normal sinus rhythm Cannot rule out Anterior infarct , age undetermined Abnormal ECG When compared with ECG of 01-JUN-2023 00:05, No significant change was found Referred By: Deb Leigh Electronically Signed By:LILIBETH PERRIN
[2023-06-06 13:35] LABS: Basophils Absolute Auto 0.1 X10*3/uL (0.0-0.2); Basophils Percent Auto 0.8 % (0-2); Eosinophils Absolute Auto 0.1 X10*3/uL (0.0-0.4); Eosinophils Percent Auto 0.4 % (0-4); Hematocrit 47.4 % (37.0-47.0); Hemoglobin 15.2 g/dl (12.0-16.0); Imm Gran Abs Auto 0.05 X10*3/uL (0.00-0.03); Imm Gran Pct Auto 0.4 % (0.0-0.4); Lymphocytes Percent Auto 48.2 % (20-40); MANUAL DIFF FLAG SCAN; Mean Corpuscular HGB Conc 32.1 g/dl (31.0-35.0); Mean Corpuscular Hemoglobin 27.4 pg (27.0-33.0); Mean Corpuscular Volume 85.4 fL (80.0-98.0); Mean Platelet Volume 10.9 fL (9.4-12.3); Monocytes Absolute Auto 0.6 X10*3/uL (0.1-1.2); Neutrophils Absolute Auto 6.3 x10*3/uL (2.0-8.3); Neutrophils Percent Auto 46.2 % (45-73); Platelet Count 218 X10*3/uL (160-400); Red Blood Count 5.55 X10*6/uL (4.20-5.50); Red Cell Distribution Width 14.1 % (11.0-16.0); SCAN SMEAR FLAG 1; White Blood Count 13.6 X10*3/uL (4.8-10.8)
[2023-06-06 13:42] LABS: Lymphocytes Absolute Auto 6.6 X10*3/uL (1.2-4.9)
[2023-06-06 13:58] LABS: Anion Gap 12 (12-20); Blood Urea Nitrogen 6 mg/dL (9-16); Calcium 10.1 mg/dL (8.4-10.2); Carbon Dioxide 26 mmol/L (22-29); Chloride 104 mmol/L (96-108); Creatinine Clr Calc Pharmacy 71.4; Estimated Glomerular Filt Rate > 60; Glucose Random 170 mg/dL (60-115); Potassium 4.1 mmol/L (3.3-5.1); Sodium 138 mmol/L (135-145)
[2023-06-06 14:07] LABS: Troponin-I High Sensitivity < 2.7 ng/L (<3.5-17.0)
[2023-06-06 14:16] LABS: SLIDE REVIEW VERIFIED
[2023-06-06 15:24] VITALS: PULSE 97; RESP 18; O2SAT 97
[2023-06-06] MEDS: Albuterol Sulfate 90 MCG 8 GM INHALER 8 PUFF INHALE (15:32)
[2023-06-06 15:46] VITALS: BP 119/70; PULSE 99; RESP 16; TEMP 36.2; O2SAT 96
[2023-06-06 18:06] VITALS: BP 152/82; PULSE 83; RESP 18; TEMP 36.4; O2SAT 99
== END 2023-06-06 18:22 | disposition home or self-care (01) ==
PROVIDERS: Physician Assistant; Emergency Provider Emergency Medicine; PCP Nurse Practitioner Primary Care
DX: J06.9 Acute upper respiratory infection, unspecified (principal); R06.02 Shortness of breath; R05.9 Cough, unspecified; R94.31 Abnormal electrocardiogram [ECG] [EKG]; F17.210 Nicotine dependence, cigarettes, uncomplicated; Z71.6 Tobacco abuse counseling; Z79.899 Other long term (current) drug therapy
CPT/HCPCS: 36415; 71045; 80048; 84484; 85025; 93005; 94640; 99284; 99285

== ENCOUNTER 2023-10-12 13:32 | Emergency (ER) | payer MEDICARE, MEDICAID, SELFPAY ==
[2023-10-12 13:36] VITALS: BP 125/82; PULSE 90; O2SAT 100
[2023-10-12 14:07] VITALS: BP 140/93; PULSE 93; RESP 16; TEMP 36.3; O2SAT 98; BMI 31.2
--- NOTE | 2023-10-12 14:07 | ED.GENADULT ---
HPI - General Adult General Stated complaint: HYPERTENSION, ANXIETY Source: patient and EMS Mode of arrival: EMS Limitations: no limitations History of Present Illness HPI narrative: Patient is a 57-year-old female who presents to emergency department via EMS for evaluation of hypertension 125/100, reports she was having a panic attack. [employer] nervous, anxious wanted to scream, palpitations. She decided to check her blood pressure after. Now symptoms have resolved. She states that she needs lisinopril at this time, she has locked box medication, the [facility] is supposed to come to the home every 3 days to provide her with her medication supply but they did not come today. This is what prompted her panic attack. He has been in contact with their services and they are going to come tonight, but she feels anxious about needing her lisinopril now. Related Data Home Medications Medication Instructions Recorded Confirmed albuterol sulfate 90 mcg/actuation 2 puff inhalation Q4-6H PRN 05/30/22 05/30/22 aerosol inhaler Shortness Of Breath Or Wheezing atorvastatin 40 mg tablet 1 tab PO DAILY 05/30/22 05/30/22 beclomethasone dipropionate 80 1 inh inhalation BID 05/30/22 05/30/22 mcg/actuation HFA breath activated aerosol (Qvar RediHaler) blood sugar diagnostic (FreeStyle 05/30/22 05/30/22 Lite Strips) blood-glucose meter ([facility] 05/30/22 05/30/22 Lite Meter kit) cetirizine 10 mg tablet 1 tab PO QAM allergies 05/30/22 05/30/22 cholecalciferol (vitamin D3) 25 1 cap PO DAILY 05/30/22 05/30/22 mcg (1,000 unit) capsule (Vitamin D3) clonazepam 0.5 mg tablet 1 tab PO DAILY 05/30/22 05/30/22 diclofenac sodium 1 % topical gel 2 g topical QID 05/30/22 05/30/22 fluticasone propionate 220 2 puff inhalation BID 05/30/22 05/30/22 mcg/actuation HFA aerosol inhaler (Flovent HFA) fluticasone propionate 50 1 spray intranasal BID 05/30/22 05/30/22 mcg/actuation nasal spray,suspension lancets 28 gauge (FreeStyle 05/30/22 05/30/22 Lancets) lisinopril 10 mg tablet 10 mg PO DAILY 05/30/22 05/30/22 lithium carbonate 450 mg 450 mg PO DAILY 05/30/22 05/30/22 tablet,extended release metformin 500 mg tablet,extended 1 tab PO QPM 05/30/22 05/30/22 release 24 hr montelukast 10 mg tablet 1 tab PO QPM 05/30/22 05/30/22 omega-3 fatty acids 1,000 mg 1,000 mg PO BID 05/30/22 05/30/22 capsule pantoprazole 40 mg tablet,delayed 1 tab PO DAILY 05/30/22 05/30/22 release risperidone 2 mg tablet 2 mg PO DAILY 05/30/22 05/30/22 tizanidine 2 mg tablet 1 tab PO BEDTIME PRN Muscle Spasm 05/30/22 05/30/22 tolterodine 2 mg tablet 2 mg PO BID 05/30/22 05/30/22 topiramate 100 mg tablet 1 tab PO BEDTIME 05/30/22 05/30/22 varenicline 1 mg tablet (Chantix) 1 mg PO BID 05/30/22 05/30/22 varicella-zoster glycoE [id number] 0.5 ml IM DAILY 05/30/22 05/30/22 adj(PF) 50 mcg/0.5 mL IM susp, kit (Shingrix (PF)) venlafaxine 150 mg 1 cap PO QAM 05/30/22 05/30/22 capsule,extended release 24 hr Previous Rx's Medication Instructions Recorded oxybutynin chloride 10 mg 10 mg PO DAILY 90 days #90 tabs 07/01/20 tablet,extended release 24 hr dextromethorphan-guaifenesin 10 10 ml PO Q4-6H PRN cough #500 mL 11/06/21 mg-100 mg/5 mL oral liquid prednisone 20 mg tablet 40 mg (2 x 20 mg) PO DAILY 5 days 11/06/21 #10 tabs ondansetron 4 mg disintegrating 4 mg PO Q6-8H PRN nausea and 01/02/23 tablet vomiting #10 tabs albuterol sulfate 2.5 mg/3 mL 2.5 mg (3 mL) inhalation QID PRN 06/01/23 (0.083 %) solution for nebulization shortness of breath or wheezing #90 mL azithromycin 250 mg tablet 250 mg PO DAILY 4 days #4 tabs 06/01/23 prednisone 50 mg tablet 50 mg PO DAILY #4 tabs 06/01/23 albuterol sulfate 2.5 mg/0.5 mL 2.5 mg (0.5 mL) inhalation Q4-6H 06/06/23 solution for nebulization PRN shortness of breath or wheezing #30 ea albuterol sulfate 90 mcg/actuation 2 puff inhalation Q6H PRN 06/06/23 aerosol inhaler shortness of breath or wheezing #6.7 grams Allergies Allergy/AdvReac Type Severity Reaction Status Date / Time latex [LATEX] Allergy Intermediate ITCHING, Verified 10/12/23 14:07 REDNESS perfume [PERFUME] Allergy Unknown TONGUE Verified 10/12/23 14:07 OROZCO DETERGENT Allergy Unknown RASH Uncoded 06/06/23 13:10 Review of Systems Review of Systems: Yes all other systems are reviewed and are negative PMFSH Past Medical History Attestation statement: The following information was validated with the patient. Source: old records reviewed Medical History History of kidney stones Environmental allergies Hyperlipidemia Hypertension Asthma Fatty liver disease, nonalcoholic Sleep apnea, obstructive Positive PPD Bipolar disorder, unspecified Depression Diabetes mellitus type 2, uncomplicated Surgical History H/O removal of neck cyst History of cholecystectomy Family History Family History Other No family history of cancer Social History Social History Household Members: None Housing: Apartment Are you a primary rn managed care to a significant other at home: No Do you presently have visiting nurse or other home services: Yes Alcohol intake: never Patient Tobacco Use Status: Current everyday Tobacco user Tobacco use type: Cigarette service: No Current occupational status: employed and disabled Current occupation: cafeteria Physical Exam ED Appearance: Alert.?Oriented to person, place and time. No acute distress.?Normal affect. Eyes: Pupils equal, round and reactive to light.? ENT: Pharynx normal.?? Neck: Normal inspection.? Neck supple.?? CVS: Heart sounds normal. Normal heart rate and rhythm.? Pulses normal.?? Respiratory: No respiratory distress.? Lung sounds clear to auscultation bilaterally?? Abdomen: Soft and non-tender. Normoactive bowel sounds. No pulsatile mass.?? Skin: Skin warm and dry.? Normal skin color.? Normal skin turgor.?? Extremities: No lower extremity edema.? No calf ttp? Neuro: Moves all extremities spontaneously. Sensation intact bilaterally. No focal neuro deficits. Ambulates with normal steady gait. Medical Decision Making Medical Decision Making MDM Narrative: Patient is a 57-year-old female who presents emergency department for evaluation of hypertension and anxiety. Blood pressure is elevated, but not consistent with hypertensive urgency/crisis, doubt end-organ dysfunction. Physical examination is benign. patient received a single dose of her lisinopril while in the emergency department. Recommended outpatient follow-up with PCP/visiting nurse services, she assures that they are coming to the home tonight for the remainder for medication management. Discussed worrisome signs and symptoms that would warrant re-evaluation in the emergency department. All questions answered. Differential Diagnosis Differential Diagnoses: The differential diagnosis associated with the presentation includes (As noted above) Admission/Observation Consideration of admission/observation: Escalation of care including admission/observation considered (As noted above) Independent Historian Clinical information obtained from an independent historian. History obtained from or confirmed by: EMS Chronic Conditions Patient?s care impacted by: Hypertension Discharge Plan Discharge Clinical Impression: Hypertension Patient Disposition: Home, Self-Care Instructions: Hypertension (ED) Additional Instructions: Follow-up with your visiting nurse services for your medication management. Continue taking all medications as prescribed. You received a single dose of your lisinopril today in the emergency department. Return back to emergency department any new or worsening symptoms or concerns. Prescriptions: No Action oxybutynin chloride 10 mg tablet extended release 24hr 10 mg PO DAILY 90 Days Qty: 90 2RF prednisone 20 mg tablet 40 mg PO DAILY 5 Days Qty: 10 0RF dextromethorphan-guaifenesin 10-100 mg/5 mL liquid 10 ml PO Q4-6H PRN (Reason: cough) Qty: 500 0RF clonazepam 0.5 mg tablet 1 tab PO DAILY venlafaxine 150 mg capsule,extended release 24hr 1 cap PO QAM lithium carbonate 450 mg Tablet Extended Release 450 mg PO DAILY risperidone 2 mg Tablet 2 mg PO DAILY topiramate 100 mg tablet 1 tab PO BEDTIME Qvar RediHaler 80 mcg/actuation Hfa Aerosol Breath Activated 1 inh INHALATION BID omega-3 fatty acids [Fish Oil Concentrate] 1,000 mg Capsule 1,000 mg PO BID cetirizine 10 mg tablet 1 tab PO QAM tolterodine 2 mg Tablet 2 mg PO BID montelukast 10 mg tablet 1 tab PO QPM fluticasone propionate [Flovent HFA] 220 mcg/actuation Hfa Aerosol Inhaler 2 puff INHALATION BID fluticasone propionate 50 mcg/actuation [place],Suspension 1 spray INTRANASAL BID Rx Instructions: administer into each nostril varenicline [Chantix] 1 mg Tablet 1 mg PO BID Shingrix (PF) 50 mcg/0.5 mL Suspension For Reconstitution 0.5 ml IM DAILY atorvastatin 40 mg tablet 1 tab PO DAILY tizanidine 2 mg tablet 1 tab PO BEDTIME PRN (Reason: Muscle Spasm) (DME) FreeStyle Lite Strips Strip MISCELLANEOUS BID (DME) blood-glucose meter [FreeStyle Lite Meter] Kit MISCELLANEOUS TID pantoprazole 40 mg tablet,delayed release (DR/EC) 1 tab PO DAILY lisinopril 10 mg Tablet 10 mg PO DAILY albuterol sulfate 90 mcg/actuation HFA aerosol inhaler 2 puff inhalation Q4-6H PRN (Reason: Shortness Of Breath Or Wheezing) metformin 500 mg tablet extended release 24 hr 1 tab PO QPM cholecalciferol (vitamin D3) [Vitamin D3] 25 mcg (1,000 unit) capsule 1 cap PO DAILY diclofenac sodium 1 % gel 2 g topical QID (DME) lancets [FreeStyle Lancets] 28 gauge misc MISCELLANEOUS BID ondansetron 4 mg tablet,disintegrating 4 mg PO Q6-8H PRN (Reason: nausea and vomiting) Qty: 10 0RF azithromycin 250 mg tablet 250 mg PO DAILY 4 Days Qty: 4 0RF Rx Instructions: start on day 2 of therapy prednisone 50 mg tablet 50 mg PO DAILY Qty: 4 0RF albuterol sulfate 2.5 mg /3 mL (0.083 %) solution for nebulization 2.5 mg inhalation QID PRN (Reason: shortness of breath or wheezing) Qty: 90 0RF albuterol sulfate 2.5 mg/0.5 mL solution for nebulization 2.5 mg inhalation Q4-6H PRN (Reason: shortness of breath or wheezing) Qty: 30 0RF albuterol sulfate 90 mcg/actuation HFA aerosol inhaler 2 puff inhalation Q6H PRN (Reason: shortness of breath or wheezing) Qty: 6.7 0RF Discharge Date/Time: 10/12/23 14:20
[2023-10-12] MEDS: lisinopriL 10 MG TABLET PO (14:16)
--- OUTSIDE RECORDS SUMMARY | 2023-10-12 14:17 | XMS_ITS | Patient Health Record ---
Author Name Unknown Organization [facility] Address [address] [place] [address] Care Team Providers Care Wellness Rn Name Role Phone Elizabeth Baird Primary Care Provider Unavaila Rg Elder Unavailable [phone] Claudia Harris Unavailable Unavailable REASON FOR REFERRAL No Information MEDICATIONS Medication SIG (Take, Route, Frequency, Duration) Notes Start Date End Date Status Polyethylene Glycol 3350 - MIX WITH LUDWIG RADE OR CRYSTAL LIGHT AND DRINK AT 5PM DAY BEFORE PROCEDURE for 1 Active Fish Oil 1000 MG 1 capsule Orally Onc e a day for 30 day(s) Active [place] Carbonate ER 450 MG 1 tablet at bedtime Orally Once a day for 30 day(s) Active Aspir-Low 81 MG 1 tablet Orally Once a day for 30 day(s) Active Atorvastatin Calcium 40 MG 1 tablet Oral ly Once a day for 30 day(s) Active Omeprazole 20 MG TAKE 1 CAPSULE BY [facility] TWICE DAILY EVERY MORNING AND EVERY EVENING for 30 Active Venlafaxine HCl ER 150 MG 1 tablet with food Orally Once a day for 30 day(s) Active MiraLax (colon prep) 8.3 ounce ((238) grams mixed with gatorade or crystal light orally begin at 5:00 p.m. the day before the procedure for 1 day 08/20/2019 Active MiraLax (colon prep) 8.3 ounce ((238) grams mixed with Gatorade or Crystal Light orally begin at 5:00 p.m. the day before the procedure for 1 day 09/03/2019 Active Lisinopril 20 MG 1 tablet Orally Once a day Active risperiDONE 0.5 MG 1 tablet Orally Once a day for 30 day(s) Active Topiramate 100 MG 1 tablet Orally Once a day for 30 day(s) Active Montelukast Sodium 10 MG 1 tablet Orally Once a day for 30 day(s) Active oxyBUTYnin Chloride ER 10 MG 1 tablet Orally Once a day for 30 day(s) Active metFORMIN HCl 500 MG 1 tablet with a susy l Orally Once a day for 30 day(s) Active Dulcolax (colon prep) 5 MG take at 3:00 p.m and 7:00p.m. Orally two tablets twice a day for one day for 1 day 08/20/2019 Active Dulcolax (colon prep) 5 MG take at 3:00 p.m and 7:00p.m. Orally two tablets twice a day for one day for 1 day 09/03/2019 Active IMMUNIZATIONS Vaccine Route Administration Date Status Comme nts Influenza Unknown 08/20/2019 Refused SOCIAL HISTORY Tobacco Use: Social History Observation Description Date Details (start date - stop date) Current Smoker NA - NA Sex Assigned At : Social History Observation Description Sex Assigned At Unknown Tobacco Use/Smoking Question Answer Notes Patient is a current smoker How often do you smoke cigarettes? every day How many cigarettes a day do you smoke? 6-10 How soon after you wake up d o you smoke your first cigarette? within 5 minutes Are you interested in quitting? Thinking about q uitting PROBLEMS Problem Type ICD Code Onset Dates Problem Status W/U Status Risk SNOMED Code Notes Problem Encounter for screening for malignant neoplasm of colon (Z12.11) Active confirmed 819532930 Problem Gastroesophageal reflux disease, esophagitis presence not specified (K21.9) Active confirmed 304753044 PLAN OF TREATMENT Pending Test Test Name Order Date CELIAC PANEL #10 01/09/2014 Future Test Test Name Order Date UPPER GI ENDOSCOPY 08/20/2019 COLONOSCOPY 08/20/2019 Insurance Providers Payer Name Payer Address Payer Phone Subscriber Number Group Number Insured Name Patient Relationship to Insured Coverage Start Date Coverage End Date [facility] [address] [place] [phone] [id number] ARIANNA BRYANT Self - patient is the insured MEDICAID OF [facility] [address] [place] [phone] [id number] ARIANNA BRYANT Self - patient is the insured MEDICAL (GENERAL) HISTORY Medical History History ICD Code NIDDM Hypertension Kidney stones Hyperlipidemia Describes a colonoscopy and upper endoscopy in approx 2010 --? [facility] in [place], [place]--does not recall the results Bipolar/Depression/anxiety No NH, CVA,Renal disease Asthma GERD Surgical History Surgery Date(Month/Year) [facility] Abscess removal from neck
== END 2023-10-12 14:20 | disposition home or self-care (01) ==
PROVIDERS: Emergency Provider Emergency Medicine; PCP Nurse Practitioner Primary Care
DX: I10 Essential (primary) hypertension (principal); F41.9 Anxiety disorder, unspecified
CPT/HCPCS: 99282; 99283

== ENCOUNTER 2024-09-18 10:31 | Outpatient (REF) | payer MEDICARE, MEDICAID, SELFPAY ==
[2024-09-18 11:21] LABS: Basophils Absolute Auto 0.1 X10*3/uL (0.0-0.2); Basophils Percent Auto 0.8 % (0-2); Eosinophils Absolute Auto 0.1 X10*3/uL (0.0-0.4); Eosinophils Percent Auto 0.5 % (0-4); Hematocrit 45.6 % (37.0-47.0); Hemoglobin 14.4 g/dl (12.0-16.0); Imm Gran Abs Auto 0.05 X10*3/uL (0.00-0.03); Imm Gran Pct Auto 0.4 % (0.0-0.4); Lymphocytes Absolute Auto 5.3 X10*3/uL (1.2-4.9); Lymphocytes Percent Auto 41.3 % (20-40); MANUAL DIFF FLAG SCAN; Mean Corpuscular HGB Conc 31.6 g/dl (31.0-35.0); Mean Corpuscular Hemoglobin 27.3 pg (27.0-33.0); Mean Corpuscular Volume 86.4 fL (80.0-98.0); Mean Platelet Volume 12.3 fL (9.4-12.3); Monocytes Absolute Auto 0.5 X10*3/uL (0.1-1.2); Monocytes Percent Auto 4.1 % (2-11); Neutrophils Absolute Auto 6.8 x10*3/uL (2.0-8.3); Neutrophils Percent Auto 52.9 % (45-73); Platelet Count 173 X10*3/uL (160-400); Red Blood Count 5.28 X10*6/uL (4.20-5.50); SCAN SMEAR FLAG 1; White Blood Count 12.8 X10*3/uL (4.8-10.8)
[2024-09-18 11:35] LABS: Estimated Average Glucose 131 mg/dL; Hemoglobin A1C 170.2028 umol/L; Hemoglobin A1c % 6.2 % (<6.0); Total Hemoglobin (HGBA1C) 3826.4992 umol/L
[2024-09-18 11:38] LABS: Lithium < 0.10 mmol/L (0.60-1.20)
[2024-09-18 12:00] LABS: Creatinine Urine 19.59 mg/dL; Microalbum/Creatinine Ratio Ur 61.2 ug/mg cr (<30)
[2024-09-18 12:11] LABS: SLIDE REVIEW VERIFIED; Vitamin B12 514 pg/mL (200-900)
[2024-09-18 12:27] LABS: Anion Gap 10 (12-20); Blood Urea Nitrogen 9 mg/dL (9-16); Calcium 10.3 mg/dL (8.4-10.2); Carbon Dioxide 29 mmol/L (22-29); Chloride 107 mmol/L (96-108); Cholesterol 160 mg/dL (<200); Estimated Glomerular Filt Rate > 60; Glucose Random 82 mg/dL (60-115); HDL Cholesterol 53 mg/dL (>40); LDL Cholesterol Calculated 71 mg/dL (<100); Potassium 3.6 mmol/L (3.3-5.1); Sodium 142 mmol/L (135-145); Triglycerides 180 mg/dL (<150)
== END 2024-09-18 10:32 | disposition home or self-care (01) ==
LOC: HO.HHCL 10:31
PROVIDERS: Visit Provider Nurse Practitioner Primary Care
DX: E11.69 Type 2 diabetes mellitus with other specified complication (principal); E78.5 Hyperlipidemia, unspecified; F32.A Depression, unspecified; R53.83 Other fatigue
CPT/HCPCS: 36415; 80048; 80061; 80178; 82043; 82570; 82607; 83036; 84443; 85025